=== PATIENT | male | born 1975 | race Two or more races ===

== ENCOUNTER 2017-01-01 13:10 | Inpatient (IN) | payer MEDICAID ==
[2017-01-01] VITALS (9 sets, daily range): BP systolic 108–129; BP diastolic 57–72
[~2017-01-01] VITALS: Ht 175.3 cm; Wt 104.4 kg
[2017-01-01 14:02] LABS: Basophils # (auto) 0.1 uL; Basophils % (auto) 0.4 % (0.0-2.0); DEFINITIVE VIEW TRANSMISSION; Eosinophils # (auto) 0.1 uL; Eosinophils % (auto) 0.8 % (0.0-7.0); Hematocrit 18.9 % (41.0-53.0); Lymphocytes # (auto) 1.4 uL; Lymphocytes % (auto) 10.1 % (10.0-50.0); Mean Corpuscular Hemoglobin 47.5 pg (28.0-32.0); Mean Corpuscular Hgb Conc. 36.2 g/dL (32.0-36.0); Mean Corpuscular Volume 131.4 fL (80.0-100.0); Mean Platelet Volume 7.1 fL (7.4-10.4); Monocytes # (auto) 0.6 uL; Monocytes % (auto) 4.1 % (0.0-12.0); Neutrophils # (auto) 11.9 uL; Neutrophils % (auto) 84.6 % (37.0-80.0); Platelet Count (auto) 180 10^3/uL (140-450)
[2017-01-01 14:11] LABS: Albumin 1.6 g/dL (3.4-5.0); BUN/Creatinine Ratio 11.1; Calcium 7.2 mg/dL (8.5-10.1)
[2017-01-01 14:14] LABS: Hemoglobin 6.8 g/dL (13.5-17.5)
[2017-01-01 14:15] LABS: Partial Thromboplastin Time 34.5 sec (22.64-33.71)
[2017-01-01 14:23] LABS: Bilirubin, Total 17.3 mg/dL (0.2-1.0); Total Protein 6.2 g/dL (6.4-8.2)
[2017-01-01 14:30] LABS: INR 1.86 (0.9-1.15); Prothrombin Time 20.4 sec (9.37-12.3)
[2017-01-01] MEDS ORDERED: POTASSIUM CHL 20MEQ/100ML 100 ML IV ONE (15:30)
[2017-01-01] MEDS ORDERED: PHYTONADIONE ORAL Susp 10 mg/10ml PO ONE (15:30)
[2017-01-01] MEDS ORDERED: MORPHINE SULF INJ 2 MG/ML SYRINGE 1ML IV PRN ×2 (15:45)
[2017-01-01] MEDS ORDERED: NITROGLYCERIN 0.4 MG SL TAB SL PRN (15:45)
[2017-01-01] MEDS ORDERED: LIDOCAINE 1% IV ONE ×2 (16:00)
[2017-01-01] MEDS ORDERED: POTASSIUM CHLORIDE 20 MEQ, LIDOCAINE 1% (LOCAL ANESTH.) 2 ML in SODIUM CHL 0.9% 100 ML IV ONE (16:00)
[2017-01-01] MEDS ORDERED: POTASSIUM CHL IV ONE ×2 (16:00)
[2017-01-01] MEDS ORDERED: OCTREOTIDE ACETATE 100 MCG in SODIUM CHL 0.9% 50 ML IV ONE (16:45)
[2017-01-01] MEDS: OCTREOTIDE ACETATE 500 MCG in SODIUM CHL 0.9% 99 ML IV SCH (20:59)
[2017-01-01] MEDS: PANTOPRAZOLE SODIUM 40 MG/10 ML VIAL IV SCH (21:30)
[2017-01-01] MEDS: PROPRANOLOL HCL 20 MG TAB PO SCH (22:00)
[2017-01-01] MEDS: FUROSEMIDE 40 MG/4 ML VIAL IV SCH (22:14)
[2017-01-02] VITALS (10 sets, daily range): BP systolic 91–111; BP diastolic 53–71
[2017-01-02 03:12] LABS: Urine Blood Negative /uL (Negative); Urine Color Brown (Yellow); Urine Glucose Normal (Normal); Urine Granular Cast MOD /lpf (0); Urine Hyaline Cast MOD /lpf (0 - 2); Urine Mucus FEW (None Seen); Urine Nitrite Negative (Negative); Urine RBC 2 /hpf (0 - 3); Urine Squamous Epithelial Cell MOD /hpf (<5); Urine WBC Clumps PRESENT /hpf (None Seen)
[2017-01-02 03:13] LABS: Urine Ketone 1+ (Negative)
[2017-01-02 03:18] LABS: Urine Bilirubin 4+ (Negative)
[2017-01-02] MEDS: OCTREOTIDE ACETATE 500 MCG in SODIUM CHL 0.9% 99 ML IV SCH ×2 (03:49→13:00)
[2017-01-02 05:42] LABS: Basophils # (auto) 0 uL; Basophils % (auto) 0.4 % (0.0-2.0); DEFINITIVE VIEW TRANSMISSION; Eosinophils # (auto) 0.1 uL; Eosinophils % (auto) 0.9 % (0.0-7.0); Hematocrit 23.1 % (41.0-53.0); Hemoglobin 7.9 g/dL (13.5-17.5); Lymphocytes # (auto) 0.8 uL; Lymphocytes % (auto) 7.2 % (10.0-50.0); Mean Corpuscular Hemoglobin 40.2 pg (28.0-32.0); Mean Corpuscular Hgb Conc. 34.1 g/dL (32.0-36.0); Mean Corpuscular Volume 117.8 fL (80.0-100.0); Mean Platelet Volume 6.9 fL (7.4-10.4); Monocytes # (auto) 0.5 uL; Neutrophils # (auto) 10.2 uL; Neutrophils % (auto) 87.5 % (37.0-80.0); Platelet Count (auto) 152 10^3/uL (140-450); SUSPECT VIEW TRANSMISSION; White Blood Cell 11.6 10^3/uL (4.4-10.8)
[2017-01-02 05:48] LABS: Red Cell Distribution Width 27.5 % (11.6-16.0)
[2017-01-02 05:55] LABS: Albumin 1.6 g/dL (3.4-5.0); BUN/Creatinine Ratio 11.7; Calcium 7.3 mg/dL (8.5-10.1); Potassium 3.5 mmol/L (3.5-5.1)
[2017-01-02 06:06] LABS: Bilirubin, Total 17.5 mg/dL (0.2-1.0); Total Protein 5.9 g/dL (6.4-8.2)
[2017-01-02 06:07] LABS: INR 1.67 (0.9-1.15); Prothrombin Time 18.3 sec (9.37-12.3)
[2017-01-02 08:31] LABS: Anisocytosis Slight; Macrocytosis Slight; Platelet Estimate Adequate
[2017-01-02] MEDS ORDERED: IOHEXOL 300 MG/ML 100ML BOTTLE IJ ONE (09:48)
[2017-01-02] MEDS: PANTOPRAZOLE SODIUM 40 MG/10 ML VIAL IV SCH ×2 (09:54→21:45)
[2017-01-02] MEDS: PROPRANOLOL HCL 20 MG TAB PO SCH ×2 (09:54→21:46)
[2017-01-02] MEDS: SPIRONOLACTONE 25 MG TAB PO SCH (09:55)
[2017-01-02] MEDS: FUROSEMIDE 40 MG/4 ML VIAL IV SCH ×2 (09:59→21:46)
[2017-01-02] MEDS: LACTULOSE 20Gm/30ML SOLN PO SCH ×2 (10:00→21:45)
[2017-01-02] MEDS: CEFTRIAXONE SODIUM 2 GM in D5W 5% 50 ML IV SCH (13:01)
[2017-01-02] MEDS: SODIUM CHLORIDE 1 GM TAB PO SCH ×2 (13:50→21:46)
[2017-01-03] MEDS: OCTREOTIDE ACETATE 500 MCG in SODIUM CHL 0.9% 99 ML IV SCH ×3 (02:21→18:55)
[2017-01-03 05:00] VITALS: BP 97/54
[2017-01-03 06:50] LABS: Basophils # (auto) 0 uL; Basophils % (auto) 0.1 % (0.0-2.0); DEFINITIVE VIEW TRANSMISSION; Eosinophils # (auto) 0.1 uL; Hematocrit 20.9 % (41.0-53.0); Hemoglobin 7.4 g/dL (13.5-17.5); Lymphocytes # (auto) 1.4 uL; Lymphocytes % (auto) 14.6 % (10.0-50.0); Mean Corpuscular Hemoglobin 41.9 pg (28.0-32.0); Mean Corpuscular Hgb Conc. 35.3 g/dL (32.0-36.0); Mean Corpuscular Volume 118.9 fL (80.0-100.0); Mean Platelet Volume 7.1 fL (7.4-10.4); Monocytes # (auto) 0.4 uL; Monocytes % (auto) 4.3 % (0.0-12.0); Neutrophils # (auto) 7.7 uL; Platelet Count (auto) 168 10^3/uL (140-450); SUSPECT VIEW TRANSMISSION; White Blood Cell 9.7 10^3/uL (4.4-10.8)
[2017-01-03 06:56] LABS: Red Cell Distribution Width 29.6 % (11.6-16.0)
[2017-01-03 07:10] LABS: Potassium 3.2 mmol/L (3.5-5.1)
[2017-01-03 07:16] LABS: Albumin 1.6 g/dL (3.4-5.0); BUN/Creatinine Ratio 13.4; Calcium 7.6 mg/dL (8.5-10.1)
[2017-01-03 07:27] LABS: Bilirubin, Total 18.8 mg/dL (0.2-1.0)
[2017-01-03 07:30] VITALS: BP 116/65
[2017-01-03 08:09] LABS: Anisocytosis Moderate; Macrocytosis Moderate; Platelet Estimate Adequate
[2017-01-03 09:00] VITALS: BP 116/65
[2017-01-03] MEDS: PANTOPRAZOLE SODIUM 40 MG/10 ML VIAL IV SCH ×2 (09:59→21:45)
[2017-01-03] MEDS: PROPRANOLOL HCL 20 MG TAB PO SCH ×2 (10:00→21:46)
[2017-01-03] MEDS: CEFTRIAXONE SODIUM 2 GM in D5W 5% 50 ML IV SCH (10:01)
[2017-01-03] MEDS: LACTULOSE 20Gm/30ML SOLN PO SCH ×2 (10:01→21:46)
[2017-01-03] MEDS: FUROSEMIDE 40 MG/4 ML VIAL IV SCH ×2 (10:01→21:46)
[2017-01-03] MEDS: SPIRONOLACTONE 25 MG TAB PO SCH (10:28)
[2017-01-03] MEDS: SODIUM CHLORIDE 1 GM TAB PO SCH ×2 (10:43→21:46)
[2017-01-03 13:00] VITALS: BP 100/56
[2017-01-03 22:01] VITALS: BP 95/62
[2017-01-04] MEDS: OCTREOTIDE ACETATE 500 MCG in SODIUM CHL 0.9% 99 ML IV SCH (04:58)
[2017-01-04 05:00] VITALS: BP 95/54
[2017-01-04 05:49] LABS: Basophils # (auto) 0 uL; DEFINITIVE VIEW TRANSMISSION; Eosinophils # (auto) 0.1 uL; Eosinophils % (auto) 0.6 % (0.0-7.0); Hematocrit 21.8 % (41.0-53.0); Hemoglobin 7.7 g/dL (13.5-17.5); Lymphocytes # (auto) 2.3 uL; Lymphocytes % (auto) 24.3 % (10.0-50.0); Mean Corpuscular Hemoglobin 41.9 pg (28.0-32.0); Mean Corpuscular Hgb Conc. 35.1 g/dL (32.0-36.0); Mean Corpuscular Volume 119.4 fL (80.0-100.0); Mean Platelet Volume 7.2 fL (7.4-10.4); Monocytes # (auto) 0.4 uL; Monocytes % (auto) 3.7 % (0.0-12.0); Neutrophils # (auto) 6.8 uL; Neutrophils % (auto) 71.4 % (37.0-80.0); Platelet Count (auto) 177 10^3/uL (140-450); SUSPECT VIEW TRANSMISSION; White Blood Cell 9.5 10^3/uL (4.4-10.8)
[2017-01-04 06:06] LABS: Red Cell Distribution Width 28.8 % (11.6-16.0)
[2017-01-04 06:08] LABS: Albumin 1.8 g/dL (3.4-5.0); BUN/Creatinine Ratio 14.5; Bilirubin, Total 19.2 mg/dL (0.2-1.0); Calcium 7.7 mg/dL (8.5-10.1); Total Protein 6.4 g/dL (6.4-8.2)
[2017-01-04 06:11] LABS: Potassium 2.9 mmol/L (3.5-5.1)
[2017-01-04] MEDS ORDERED: POTASSIUM CHL 20 Meq TABLET PO ONE (07:00)
[2017-01-04 07:36] LABS: Platelet Estimate Adequate
[2017-01-04 07:37] LABS: Anisocytosis Moderate; Macrocytosis Moderate
[2017-01-04 08:00] VITALS: BP 97/58
[2017-01-04] MEDS ORDERED: LIDOCAINE VISCOUS 2% 15ML UD ONE (08:25)
[2017-01-04] MEDS ORDERED: SODIUM CHLORIDE LOCK 10 ML ONE (08:25)
[2017-01-04] MEDS ORDERED: diphenhdrAMINE HCL 50 MG/1 ML VL ONE (08:26)
[2017-01-04] MEDS ORDERED: fentaNYL CITRATE 100 MCG/2 ML VL ONE (08:26)
[2017-01-04] MEDS ORDERED: MIDAZOLAM HCL 5 MG/ML-1ML VIAL ONE (08:26)
[2017-01-04 09:00] VITALS: BP 97/58
[2017-01-04] MEDS: FUROSEMIDE 40 MG/4 ML VIAL IV SCH ×2 (09:37→22:19)
[2017-01-04] MEDS: PANTOPRAZOLE SODIUM 40 MG/10 ML VIAL IV SCH (09:37)
[2017-01-04] MEDS: LACTULOSE 20Gm/30ML SOLN PO SCH ×2 (09:37→22:19)
[2017-01-04] MEDS: SODIUM CHLORIDE 1 GM TAB PO SCH ×2 (09:37→22:19)
[2017-01-04] MEDS: PROPRANOLOL HCL 20 MG TAB PO SCH ×2 (09:38→22:20)
[2017-01-04] MEDS: SPIRONOLACTONE 25 MG TAB PO SCH (09:38)
[2017-01-04] MEDS: POTASSIUM CHL 20MEQ/100ML 100 ML IV SCH ×2 (13:46→16:49)
[2017-01-04] MEDS: CEFTRIAXONE SODIUM 2 GM in D5W 5% 50 ML IV SCH (14:30)
[2017-01-04 14:38] LABS: Body Fluid Polymorphonuclear 20 %
[2017-01-04] MEDS ORDERED: POTASSIUM CHL 20MEQ/100ML 100 ML IV SCH (16:30)
[2017-01-04 17:00] VITALS: BP 91/40
[2017-01-04 22:00] VITALS: BP 93/54
[2017-01-04] MEDS: PANTOPRAZOLE 40 MG TAB PO SCH (22:20)
[2017-01-05 05:00] VITALS: BP 98/56
[2017-01-05 06:03] LABS: Basophils # (auto) 0 uL; Basophils % (auto) 0.2 % (0.0-2.0); DEFINITIVE VIEW TRANSMISSION; Eosinophils # (auto) 0.1 uL; Eosinophils % (auto) 1.1 % (0.0-7.0); Hemoglobin 7.4 g/dL (13.5-17.5); Lymphocytes # (auto) 2.2 uL; Lymphocytes % (auto) 23.7 % (10.0-50.0); Mean Corpuscular Hemoglobin 42.4 pg (28.0-32.0); Mean Corpuscular Hgb Conc. 35.3 g/dL (32.0-36.0); Mean Corpuscular Volume 120.2 fL (80.0-100.0); Monocytes # (auto) 0.5 uL; Monocytes % (auto) 4.9 % (0.0-12.0); Neutrophils # (auto) 6.5 uL; Neutrophils % (auto) 70.1 % (37.0-80.0); Platelet Count (auto) 166 10^3/uL (140-450); SUSPECT VIEW TRANSMISSION; White Blood Cell 9.3 10^3/uL (4.4-10.8)
[2017-01-05 06:05] LABS: Calcium 7.8 mg/dL (8.5-10.1); Potassium 3.2 mmol/L (3.5-5.1)
[2017-01-05 06:09] LABS: Albumin 1.6 g/dL (3.4-5.0)
[2017-01-05 06:19] LABS: Bilirubin, Total 18.4 mg/dL (0.2-1.0); Total Protein 6.1 g/dL (6.4-8.2)
[2017-01-05 06:42] LABS: Platelet Estimate Adequate
[2017-01-05 06:43] LABS: Anisocytosis Moderate
[2017-01-05 06:44] LABS: Basophilic Stippling FEW; Macrocytosis Marked; Polychromasia Slight
[2017-01-05 07:57] VITALS: BP 93/57
[2017-01-05 08:19] VITALS: BP 107/52
[2017-01-05] MEDS: FUROSEMIDE 40 MG/4 ML VIAL IV SCH ×2 (09:33→22:00)
[2017-01-05] MEDS: LACTULOSE 20Gm/30ML SOLN PO SCH ×2 (09:33→21:59)
[2017-01-05] MEDS: SPIRONOLACTONE 25 MG TAB PO SCH (09:34)
[2017-01-05] MEDS: PANTOPRAZOLE 40 MG TAB PO SCH ×2 (09:34→22:00)
[2017-01-05] MEDS: PROPRANOLOL HCL 20 MG TAB PO SCH ×2 (09:34→22:00)
[2017-01-05] MEDS: SODIUM CHLORIDE 1 GM TAB PO SCH ×2 (09:51→21:59)
[2017-01-05] MEDS: CEFTRIAXONE SODIUM 2 GM in D5W 5% 50 ML IV SCH (10:13)
[2017-01-05] MEDS ORDERED: POTASSIUM CHL 20 Meq TABLET PO ONE (10:30)
[2017-01-05] MEDS: PHYTONADIONE ORAL Susp 10 mg/10ml PO SCH (10:53)
[2017-01-05 12:09] VITALS: BP 104/58
[2017-01-05 16:53] VITALS: BP 88/57
[2017-01-05 17:09] LABS: Albumin, Body Fluid 0.5 g/dL (.)
[2017-01-05 22:00] VITALS: BP 80/41
[2017-01-06 05:00] VITALS: BP 102/56
[2017-01-06 06:54] LABS: DEFINITIVE VIEW TRANSMISSION; Hematocrit 20.8 % (41.0-53.0); Hemoglobin 7.3 g/dL (13.5-17.5); Mean Corpuscular Hgb Conc. 35.2 g/dL (32.0-36.0); Mean Corpuscular Volume 119.3 fL (80.0-100.0); Mean Platelet Volume 6.7 fL (7.4-10.4); Platelet Count (auto) 180 10^3/uL (140-450); SUSPECT VIEW TRANSMISSION; White Blood Cell 9.5 10^3/uL (4.4-10.8)
[2017-01-06 07:11] LABS: Metamyelocytes % 0; Myelocytes % 0; Promyelocytes % 0; Reactive Lymphocytes 0
[2017-01-06 07:24] LABS: Partial Thromboplastin Time 32.7 sec (22.64-33.71)
[2017-01-06 07:27] LABS: INR 1.56 (0.9-1.15); Prothrombin Time 17.1 sec (9.37-12.3)
[2017-01-06 07:48] LABS: Platelet Estimate Adequate
[2017-01-06 07:49] LABS: Anisocytosis Moderate; Macrocytosis Moderate
[2017-01-06 08:11] LABS: Albumin 1.8 g/dL (3.4-5.0); BUN/Creatinine Ratio 16.4; Bilirubin, Total 17.4 mg/dL (0.2-1.0); Calcium 7.8 mg/dL (8.5-10.1); Potassium 3.3 mmol/L (3.5-5.1); Total Protein 6.5 g/dL (6.4-8.2)
[2017-01-06 09:00] VITALS: BP 90/44
[2017-01-06] MEDS: PROPRANOLOL HCL 20 MG TAB PO SCH (10:00)
[2017-01-06] MEDS: FUROSEMIDE 40 MG/4 ML VIAL IV SCH (10:00)
[2017-01-06] MEDS: PHYTONADIONE ORAL Susp 10 mg/10ml PO SCH (10:00)
[2017-01-06] MEDS: SODIUM CHLORIDE 1 GM TAB PO SCH (10:00)
[2017-01-06] MEDS: SPIRONOLACTONE 25 MG TAB PO SCH (10:12)
[2017-01-06] MEDS: PANTOPRAZOLE 40 MG TAB PO SCH (10:13)
[2017-01-06] MEDS: LACTULOSE 20Gm/30ML SOLN PO SCH (10:13)
[2017-01-06] MEDS: CEFTRIAXONE SODIUM 2 GM in D5W 5% 50 ML IV SCH (10:14)
[2017-01-06 13:00] VITALS: BP 100/54
[2017-01-06 13:13] VITALS: BP 90/44
== END 2017-01-06 14:20 | disposition home or self-care (01) | DRG 280 ==
LOC: ER 13:10 → OVERFLOW 13:11 → EAST 17:41
PROVIDERS: ADMIT Internal Medicine; ATTEND Family Medicine
PROC: 30233N1 Transfusion of Nonautologous Red Blood Cells into Peripheral Vein, Percutaneous Approach (ICD-10-PCS; 2017-01-01)
PROC: 30233L1 Transfusion of Nonautologous Fresh Plasma into Peripheral Vein, Percutaneous Approach (ICD-10-PCS; 2017-01-02)
PROC: 30233K1 Transfusion of Nonautologous Frozen Plasma into Peripheral Vein, Percutaneous Approach (ICD-10-PCS; 2017-01-02)
PROC: 0W9G30Z Drainage of Peritoneal Cavity with Drainage Device, Percutaneous Approach (ICD-10-PCS; 2017-01-04)
PROC: 0DJ08ZZ Inspection of Upper Intestinal Tract, Via Natural or Artificial Opening Endoscopic (ICD-10-PCS; principal; 2017-01-04 12:26)
DX: K70.31 Alcoholic cirrhosis of liver with ascites (principal); E43 Unspecified severe protein-calorie malnutrition; D68.4 Acquired coagulation factor deficiency; K76.6 Portal hypertension; C22.0 Liver cell carcinoma; I85.10 Secondary esophageal varices without bleeding; E87.1 Hypo-osmolality and hyponatremia; K92.2 Gastrointestinal hemorrhage, unspecified; E87.70 Fluid overload, unspecified; D64.9 Anemia, unspecified; E87.6 Hypokalemia; F41.9 Anxiety disorder, unspecified; R16.0 Hepatomegaly, not elsewhere classified; F10.229 Alcohol dependence with intoxication, unspecified; F17.210 Nicotine dependence, cigarettes, uncomplicated; K31.89 Other diseases of stomach and duodenum; K44.9 Diaphragmatic hernia without obstruction or gangrene; Z68.34 Body mass index [BMI] 34.0-34.9, adult
CPT/HCPCS: 10022; 36415; 36430; 43235; 74176; 74178; 76700; 76942; 80053; 80074; 80320; 81001; 82105; 82140; 82150; 83690; 84132; 85007; 85025; 85027; 85610; 85730; 86850; 86900; 86901; 86920; 89051; 96365; 99291; C9113; J0696; J2001; J2250; J3480; J7060

== ENCOUNTER 2017-03-24 12:07 | Observation (INO) | payer MEDICAID ==
[~2017-03-24] VITALS: Ht 175.3 cm; Wt 83.9 kg
[2017-03-24] MEDS ORDERED: SODIUM CHLORIDE 0.9% 1,000 ML IVB ONE (13:07)
[2017-03-24] MEDS ORDERED: ONDANSETRON HCL 4 MG/2 ML VIAL IV ONE (13:15)
[2017-03-24 13:40] LABS: CONDITION Y; DEFINITIVE SEE PRINTOUT; Hematocrit 40.6 % (41.0-53.0); Hemoglobin 13.8 g/dL (13.5-17.5); Mean Corpuscular Hemoglobin 34.8 pg (28.0-32.0); Mean Corpuscular Volume 102.6 fL (80.0-100.0); Mean Platelet Volume 9.2 fL (7.4-10.4); Platelet Count (auto) 231 10^3/uL (140-450); Red Cell Distribution Width 15.4 % (11.6-16.0); SUSPECT SEE PRINTOUT
[2017-03-24 13:49] LABS: Metamyelocytes % 0; Myelocytes % 0; Promyelocytes % 0; Reactive Lymphocytes 0
[2017-03-24 13:52] LABS: INR 1.41 (0.9-1.15); Partial Thromboplastin Time 32.6 sec (22.64-33.71)
[2017-03-24 13:55] LABS: Albumin 3.5 g/dL (3.4-5.0); BUN/Creatinine Ratio 6.8; Calcium 10.1 mg/dL (8.5-10.1); Magnesium 2.3 mg/dL (1.6-2.6); Prothrombin Time 15.4 sec (9.37-12.3)
[2017-03-24 13:58] LABS: Bilirubin, Total 12.8 mg/dL (0.2-1.0); Total Protein 11.7 g/dL (6.4-8.2)
[2017-03-24] MEDS ORDERED: SODIUM CHLORIDE 0.9% 2,000 ML IV ONE ×2 (14:00→15:15)
[2017-03-24 14:04] LABS: Potassium 2.7 mmol/L (3.5-5.1)
[2017-03-24] MEDS: POTASSIUM CHL 20MEQ/100ML 100 ML IV SCH ×2 (14:15→16:15)
[2017-03-24] MEDS ORDERED: cefTRIAXone 1GM/50ML D5W 50 ML IV ONE (14:15)
[2017-03-24 15:05] LABS: Lactic Acid w/Reflex 8.8 mmol/L (0.4-2.0)
[2017-03-24 15:12] LABS: Macrocytosis Slight; Platelet Estimate Adequate
[2017-03-24 15:13] LABS: Giant Platelets Few
[2017-03-24] MEDS ORDERED: SODIUM CHLORIDE 0.9% 1,000 ML IV SCH (15:15)
[2017-03-24] MEDS ORDERED: LORazepam 2MG/ML-1ML VIAL IV PRN (15:15)
[2017-03-24] MEDS ORDERED: NOREPINEPHRINE BITARTRATE 250 ML IV SCH (15:15)
[2017-03-24] MEDS ORDERED: PANTOPRAZOLE 40 MG/10 ML VIAL IV ONE (15:15)
[2017-03-24] MEDS ORDERED: MORPHINE SULFATE 4 MG/ML SYRG IV PRN (15:15)
[2017-03-24] MEDS ORDERED: LINEZOLID 600MG/300ML 300 ML IV SCH ×2 (15:15→15:30)
[2017-03-24] MEDS ORDERED: NITROGLYCERIN 0.4 MG SL TAB SL PRN (15:15)
[2017-03-24] MEDS ORDERED: DEXTROSE (50%) 50ML SYRG IV PRN (15:15)
[2017-03-24] MEDS ORDERED: PROMETHAZINE HCL 25 MG/ML 1ML IV PRN (15:15)
[2017-03-24] MEDS ORDERED: MORPHINE SULF INJ 2 MG/ML SYRINGE 1ML IV PRN ×2 (15:15)
[2017-03-24] MEDS ORDERED: PIPERACILLIN-TAZOB 3.375GM 100 ML IV ONE (15:30)
[2017-03-24 15:37] LABS: REFLEX LACTIC ACID YES OR NO YES
[2017-03-24 17:06] VITALS: BP 90/50
[2017-03-24] MEDS ORDERED: InsuLIN REG 1unit/0.01ml Soln (100units/ml) SC SCH (18:00)
[2017-03-24] MEDS ORDERED: ACCU-CHEK COMFORT CURVE STRIP VI SCH (18:00)
[2017-03-24] MEDS ORDERED: PIPERACILLIN-TAZOB 3.375GM 100 ML IV SCH (21:00)
[2017-03-25] MEDS ORDERED: PANTOPRAZOLE 40 MG/10 ML VIAL IV SCH (10:00)
== END 2017-03-24 18:11 | disposition short-term general hospital (02) | DRG 254 ==
LOC: ER 12:07 → EDBD 12:07 → OVERFLOW 13:08 → ER 18:11
PROVIDERS: ADMIT Family Medicine; ATTEND Family Medicine
DX: K42.0 Umbilical hernia with obstruction, without gangrene (principal); I10 Essential (primary) hypertension; R11.2 Nausea with vomiting, unspecified; E11.9 Type 2 diabetes mellitus without complications; F41.9 Anxiety disorder, unspecified; F32.9 Major depressive disorder, single episode, unspecified; E86.0 Dehydration; E87.6 Hypokalemia
CPT/HCPCS: 36415; 71010; 74176; 80053; 82140; 82150; 83036; 83605; 83690; 83735; 85007; 85027; 85045; 85610; 85730; 87040; 87077; 87186; 93005; 96361; 96365; 96366; 96367; 96368; 96375; 99291; C9113; G0378; J0696; J2020; J2405; J2543; J3480; J7030

== ENCOUNTER 2018-05-02 04:34 | Inpatient (IN) | payer MEDICAID ==
[~2018-05-02] VITALS: Ht 177.8 cm; Wt 95.7 kg
[2018-05-02] MEDS ORDERED: SODIUM CHLORIDE 0.9% 500 ML IV ONE (05:15)
[2018-05-02] MEDS ORDERED: PANTOPRAZOLE 40 MG/10 ML VIAL IV ONE ×2 (05:15→11:15)
[2018-05-02] MEDS ORDERED: FAMO40TA49 PO (06:08)
[2018-05-02] MEDS ORDERED: FER325T PO (06:08)
[2018-05-02] MEDS ORDERED: FURO40TA4 PO (06:08)
[2018-05-02] MEDS ORDERED: PRO20T PO (06:08)
[2018-05-02] MEDS ORDERED: CHOLCAP4 PO (06:08)
[2018-05-02] MEDS ORDERED: SODI650T PO (06:08)
[2018-05-02] MEDS ORDERED: SPIR25TA8 PO (06:08)
[2018-05-02] MEDS ORDERED: MIRT30TA PO (06:10)
[2018-05-02] MEDS ORDERED: ALEN1TAB32 PO (06:10)
[2018-05-02] MEDS ORDERED: HYDRX10T PO (06:11)
[2018-05-02] MEDS ORDERED: CHL10C PO (06:11)
[2018-05-02] MEDS ORDERED: PROP60CA34 PO (06:13)
[2018-05-02 06:52] LABS: Basophils # (auto) 0 uL; Basophils % (auto) 0.4 % (0.0-2.0); Eosinophils # (auto) 0.3 uL; Eosinophils % (auto) 4.2 % (0.0-7.0); Hematocrit 28.9 % (41.0-53.0); Hemoglobin 9.4 g/dL (13.5-17.5); Lymphocytes # (auto) 1.2 uL; Lymphocytes % (auto) 14.8 % (10.0-50.0); Mean Corpuscular Hemoglobin 29.2 pg (28.0-32.0); Mean Corpuscular Hgb Conc. 32.7 g/dL (32.0-36.0); Mean Corpuscular Volume 89.4 fL (80.0-100.0); Monocytes % (auto) 12.6 % (0.0-12.0); Neutrophils # (auto) 5.5 uL; Nucleated Red Blood Cells % 0.1 %; Platelet Count (auto) 76 10^3/uL (140-450); Red Blood Cells 3.23 10^6/uL (4.5-5.90); White Blood Cell 8.1 10^3/uL (4.4-10.8)
[2018-05-02 07:06] LABS: INR 1.17 (0.9-1.15); Partial Thromboplastin Time 30.2 sec (23.78-33.04); Prothrombin Time 12.4 sec (9.27-12.13)
[2018-05-02 07:15] LABS: Alanine Aminotransferase 31 U/L (16-61); Albumin 3.1 g/dL (3.4-5.0); Anion Gap 13 (5-15); Calcium 7.9 mg/dL (8.5-10.1); Carbon Dioxide 24 mmol/L (21-32); Chloride 103 mmol/L (98-107); Glucose 101 mg/dL (74-106); Potassium 3.9 mmol/L (3.5-5.1); Sodium 140 mmol/L (136-145)
[2018-05-02 07:17] LABS: Aspartate Aminotransferase 57 U/L (15-37); BUN/Creatinine Ratio 19.4; Blood Urea Nitrogen 18 mg/dL (7-18); GFR African American 116 mL/min; GFR Non-African American 96 mL/min
[2018-05-02 07:23] LABS: Alkaline Phosphatase 104 U/L (45-117)
[2018-05-02 07:24] LABS: Red Cell Distribution Width 20.1 % (11.8-14.3)
[2018-05-02 08:39] LABS: Lactic Acid w/Reflex 2.1 mmol/L (0.4-2.0)
[2018-05-02] MEDS ORDERED: OCTREOTIDE ACETATE 100 MCG in SODIUM CHL 0.9% 50 ML IV ONE (10:45)
[2018-05-02] MEDS ORDERED: FAMOTIDINE (10MG/ML) 2ML VL IV ONE (10:45)
[2018-05-02] MEDS ORDERED: SPIRONOLACTONE 25 MG TAB PO ONE ×2 (11:00→11:15)
[2018-05-02] MEDS ORDERED: chlordiazePOXIDE HCL 25 MG CAP PO PRN (11:00)
[2018-05-02] MEDS ORDERED: hydrOXYzine HCL 10 MG TAB PO PRN (11:00)
[2018-05-02] MEDS ORDERED: HYDROcodone-ACET 5/325MG TAB PO PRN (11:00)
[2018-05-02] MEDS ORDERED: ALUM & MAG HYDROX-SIMETH LIQ(MAALOX) 30 ML PO PRN (11:00)
[2018-05-02] MEDS ORDERED: DOCUSATE SOD 100 MG CAP PO PRN (11:00)
[2018-05-02] MEDS ORDERED: NITROGLYCERIN 0.4 MG SL TAB SL PRN (11:00)
[2018-05-02] MEDS ORDERED: ONDANSETRON HCL 4 MG/2 ML VIAL IV PRN (11:00)
[2018-05-02] MEDS ORDERED: FUROSEMIDE 40 MG/4 ML VIAL IV ONE (11:00)
[2018-05-02] MEDS ORDERED: PROPRANOLOL HCL 20 MG TAB PO ONE ×2 (11:00→11:15)
[2018-05-02] MEDS ORDERED: ACETAMINOPHEN 325 MG TAB PO PRN (11:00)
[2018-05-02] MEDS ORDERED: TEMAZEPAM 15 MG CAP PO PRN (11:00)
[2018-05-02] MEDS ORDERED: MORPHINE SULF INJ 2 MG/ML SYRINGE 1ML IV PRN ×2 (11:00)
[2018-05-02] MEDS ORDERED: ALENDRONATE SODIUM 10 MG TAB PO SCH (11:00)
[2018-05-02] MEDS ORDERED: ERGOCALCIFEROL 50,000 UNIT(1.25MG) CAP PO SCH (11:00)
[2018-05-02] MEDS: SODIUM CHLORIDE 0.9% 1,000 ML IV SCH ×2 (11:27→18:14)
[2018-05-02 11:40] LABS: Amphetamine Screen, Urine NEGATIVE (NEGATIVE); Barbiturate Scree,Urine NEGATIVE (NEGATIVE); Benzodiazephine Screen, Urine POSITIVE (NEGATIVE); Cannabinoid Screen, Urine NEGATIVE (NEGATIVE); Cocaine Screen, Urine NEGATIVE (NEGATIVE); Opiate Scree,Urine NEGATIVE (NEGATIVE); Phencyclidine Screen, Urine NEGATIVE (NEGATIVE)
[2018-05-02] MEDS: OCTREOTIDE ACETATE 500 MCG in SODIUM CHL 0.9% 99 ML IV SCH ×2 (11:40→20:45)
[2018-05-02] MEDS: Ensure Enlive Strawberry 8oz Bottle PO SCH ×2 (12:00→14:38)
[2018-05-02] MEDS: GABAPENTIN 300 MG CAP PO SCH ×2 (14:00→22:00)
[2018-05-02 14:01] LABS: Hematocrit 25.9 % (41.0-53.0); Hemoglobin 8.7 g/dL (13.5-17.5)
[2018-05-02] MEDS: FERROUS SULFATE 325 MG TAB PO SCH (18:00)
[2018-05-02] MEDS: SPIRONOLACTONE 25 MG TAB PO SCH (18:00)
[2018-05-02] MEDS ORDERED: SODIUM CHLORIDE 0.9% 1,000 ML IV ONE (18:15)
[2018-05-02] MEDS ORDERED: LORazepam 2MG/ML-1ML VIAL IV PRN (18:30)
[2018-05-02] MEDS ORDERED: NOREPINEPHRINE 8 MG/250ML KIT 250 ML IV SCH (19:01)
[2018-05-02] MEDS: THIAMINE INJ 100 MG, MULTIPLE VITAMIN 10 ML, FOLIC ACID 1 MG, MAGNESIUM SULF SDV 50% 8 ... IV SCH ×5 (19:49)
[2018-05-02 20:51] LABS: Hematocrit 23.2 % (41.0-53.0); Hemoglobin 7.8 g/dL (13.5-17.5)
[2018-05-02] MEDS: SODIUM BICARBONATE 650 MG TAB PO SCH (22:00)
[2018-05-02] MEDS: MIRTAZAPINE 30 MG TAB PO SCH (22:00)
[2018-05-02] MEDS: PROPRANOLOL HCL 20 MG TAB PO SCH (22:00)
[2018-05-02 23:46] LABS: Hemoglobin 7.4 g/dL (13.5-17.5)
[2018-05-02 23:49] LABS: Hematocrit 22.6 % (41.0-53.0)
[2018-05-03] VITALS (18 sets, daily range): BP systolic 88–104; BP diastolic 54–70
[2018-05-03 05:04] LABS: Basophils # (auto) 0 uL; Eosinophils # (auto) 0.2 uL; Hemoglobin 7.2 g/dL (13.5-17.5); Lymphocytes # (auto) 1.1 uL; Neutrophils # (auto) 2.5 uL
[2018-05-03 05:06] LABS: Basophils % (auto) 0.8 % (0.0-2.0); Hematocrit 21.6 % (41.0-53.0); Lymphocytes % (auto) 24.8 % (10.0-50.0); Mean Corpuscular Hgb Conc. 33.2 g/dL (32.0-36.0); Mean Corpuscular Volume 90.2 fL (80.0-100.0); Monocytes # (auto) 0.6 uL; Monocytes % (auto) 13.1 % (0.0-12.0); Neutrophils % (auto) 57.3 % (37.0-80.0); Nucleated Red Blood Cells % 0.1 %; Platelet Count (auto) 50 10^3/uL (140-450); White Blood Cell 4.4 10^3/uL (4.4-10.8)
[2018-05-03 05:22] LABS: Albumin 2.8 g/dL (3.4-5.0); Calcium 7.4 mg/dL (8.5-10.1); Potassium 3.8 mmol/L (3.5-5.1)
[2018-05-03 05:29] LABS: BUN/Creatinine Ratio 28.7; Bilirubin, Total 1.3 mg/dL (0.2-1.0); Total Protein 5.8 g/dL (6.4-8.2)
[2018-05-03] MEDS: SPIRONOLACTONE 25 MG TAB PO SCH ×3 (05:59→20:58)
[2018-05-03] MEDS: GABAPENTIN 300 MG CAP PO SCH ×4 (05:59→20:58)
[2018-05-03] MEDS: SODIUM CHLORIDE 0.9% 1,000 ML IV SCH ×3 (06:00→20:18)
[2018-05-03 06:43] LABS: Urine Bacteria NONE SEEN /hpf (None Seen); Urine Blood Negative /uL (Negative); Urine Specific Gravity 1.015 (1.001-1.035); Urine WBC <1 /hpf (0 - 3)
[2018-05-03] MEDS: Ensure Enlive Strawberry 8oz Bottle PO SCH ×3 (08:00→17:45)
[2018-05-03] MEDS: FERROUS SULFATE 325 MG TAB PO SCH ×2 (08:00→17:45)
[2018-05-03] MEDS ORDERED: FLUMAZENIL 0.1 MG/ML INJ 10ML MDV IV ONE (08:30)
[2018-05-03] MEDS ORDERED: SODIUM CHLORIDE LOCK 10 ML ONE (08:30)
[2018-05-03] MEDS ORDERED: NALOXONE HCL 0.4 MG/ML VIAL ONE (08:30)
[2018-05-03] MEDS ORDERED: LIDOCAINE VISCOUS 2% 15ML UD ONE (08:30)
[2018-05-03] MEDS ORDERED: diphenhdrAMINE HCL 50 MG/1 ML VL ONE (08:31)
[2018-05-03] MEDS: OCTREOTIDE ACETATE 500 MCG in SODIUM CHL 0.9% 99 ML IV SCH ×2 (09:05→20:25)
[2018-05-03] MEDS ORDERED: MULTIPLE VITAMIN TAB PO SCH (10:00)
[2018-05-03] MEDS: PROPRANOLOL HCL 20 MG TAB PO SCH ×2 (10:00→19:53)
[2018-05-03] MEDS ORDERED: FAMOTIDINE (10MG/ML) 2ML VL IV SCH (10:00)
[2018-05-03] MEDS: SODIUM BICARBONATE 650 MG TAB PO SCH ×2 (10:00→19:52)
[2018-05-03] MEDS: PANTOPRAZOLE 40 MG/10 ML VIAL IV SCH (11:27)
[2018-05-03 12:13] LABS: Basophils # (auto) 0 uL; Eosinophils # (auto) 0.2 uL; Hemoglobin 7.1 g/dL (13.5-17.5); Lymphocytes # (auto) 1.2 uL; Lymphocytes % (auto) 25.8 % (10.0-50.0); Monocytes # (auto) 0.5 uL; Neutrophils # (auto) 2.6 uL; Nucleated Red Blood Cells % 0.1 %; White Blood Cell 4.5 10^3/uL (4.4-10.8)
[2018-05-03 12:15] LABS: Basophils % (auto) 0.7 % (0.0-2.0); Eosinophils % (auto) 4.4 % (0.0-7.0); Hematocrit 21.4 % (41.0-53.0); Mean Corpuscular Hemoglobin 29.9 pg (28.0-32.0); Mean Corpuscular Volume 90.6 fL (80.0-100.0); Monocytes % (auto) 11.2 % (0.0-12.0); Neutrophils % (auto) 57.9 % (37.0-80.0); Platelet Count (auto) 46 10^3/uL (140-450); Red Blood Cells 2.36 10^6/uL (4.5-5.90)
[2018-05-03 12:16] LABS: Red Cell Distribution Width 20.2 % (11.8-14.3)
[2018-05-03] MEDS ORDERED: LIDOCAINE VISCOUS 2% 15ML UD MT ONE (12:25)
[2018-05-03] MEDS ORDERED: fentaNYL CITRATE 100 MCG/2 ML VL IV ONE ×2 (12:25→12:28)
[2018-05-03] MEDS: MIDAZOLAM HCL 5 MG/ML-1ML VIAL ONE ×2 (12:25→12:28)
[2018-05-03] MEDS: fentaNYL CITRATE 100 MCG/2 ML VL ONE ×2 (12:25→12:28)
[2018-05-03] MEDS ORDERED: MIDAZOLAM HCL 1MG/1ML-2 ML VIAL IV ONE ×2 (12:25→12:28)
[2018-05-03] MEDS ORDERED: diphenhdrAMINE HCL 50 MG/1 ML VL IV ONE (12:26)
[2018-05-03] MEDS: THIAMINE INJ 100 MG, MULTIPLE VITAMIN 10 ML, FOLIC ACID 1 MG, MAGNESIUM SULF SDV 50% 8 ... IV SCH ×5 (13:32)
[2018-05-03 14:06] LABS: Basophils # (auto) 0 uL; Eosinophils # (auto) 0.2 uL; Hemoglobin 7.2 g/dL (13.5-17.5); Monocytes # (auto) 0.4 uL; Neutrophils # (auto) 2.3 uL
[2018-05-03 14:08] LABS: Basophils % (auto) 0.4 % (0.0-2.0); Eosinophils % (auto) 4.7 % (0.0-7.0); Hematocrit 21.5 % (41.0-53.0); Mean Corpuscular Hemoglobin 30.4 pg (28.0-32.0); Mean Corpuscular Hgb Conc. 33.6 g/dL (32.0-36.0); Mean Corpuscular Volume 90.4 fL (80.0-100.0); Monocytes % (auto) 10.4 % (0.0-12.0); Neutrophils % (auto) 58.5 % (37.0-80.0); Nucleated Red Blood Cells % 0.1 %; Platelet Count (auto) 45 10^3/uL (140-450); Red Blood Cells 2.38 10^6/uL (4.5-5.90)
[2018-05-03 14:17] LABS: Red Cell Distribution Width 20.7 % (11.8-14.3)
[2018-05-03] MEDS: FUROSEMIDE 40 MG/4 ML VIAL IV SCH (15:25)
[2018-05-03] MEDS: MIRTAZAPINE 30 MG TAB PO SCH (19:53)
[2018-05-04] VITALS (7 sets, daily range): BP systolic 99–124; BP diastolic 47–77
[2018-05-04 02:25] LABS: Basophils # (auto) 0 uL; Eosinophils # (auto) 0.2 uL; Lymphocytes # (auto) 0.8 uL; Mean Corpuscular Hgb Conc. 32.1 g/dL (32.0-36.0); Monocytes # (auto) 0.5 uL; Monocytes % (auto) 9.3 % (0.0-12.0); Neutrophils # (auto) 3.4 uL; White Blood Cell 4.9 10^3/uL (4.4-10.8)
[2018-05-04 02:27] LABS: Basophils % (auto) 0.2 % (0.0-2.0); Eosinophils % (auto) 4.1 % (0.0-7.0); Hematocrit 26.9 % (41.0-53.0); Hemoglobin 8.6 g/dL (13.5-17.5); Lymphocytes % (auto) 15.9 % (10.0-50.0); Mean Corpuscular Hemoglobin 29.2 pg (28.0-32.0); Mean Corpuscular Volume 91.2 fL (80.0-100.0); Neutrophils % (auto) 70.5 % (37.0-80.0); Platelet Count (auto) 58 10^3/uL (140-450); Red Blood Cells 2.96 10^6/uL (4.5-5.90); Red Cell Distribution Width 19.8 % (11.8-14.3)
[2018-05-04 02:44] LABS: Calcium 7.5 mg/dL (8.5-10.1); Potassium 4.3 mmol/L (3.5-5.1)
[2018-05-04] MEDS: OCTREOTIDE ACETATE 500 MCG in SODIUM CHL 0.9% 99 ML IV SCH ×3 (06:00→22:45)
[2018-05-04] MEDS: Ensure Enlive Strawberry 8oz Bottle PO SCH (08:00)
[2018-05-04] MEDS ORDERED: DEXTROSE (50%) 50ML SYRG IV PRN (09:45)
[2018-05-04] MEDS: FERROUS SULFATE 325 MG TAB PO SCH ×2 (09:59→17:41)
[2018-05-04] MEDS: PANTOPRAZOLE 40 MG/10 ML VIAL IV SCH ×2 (10:00→10:09)
[2018-05-04] MEDS: SODIUM CHLORIDE 0.9% 1,000 ML IV SCH ×2 (10:00→13:01)
[2018-05-04] MEDS: FUROSEMIDE 40 MG/4 ML VIAL IV SCH (10:15)
[2018-05-04] MEDS ORDERED: MIDAZOLAM HCL 1MG/1ML-2 ML VIAL ONE ×3 (11:25→11:33)
[2018-05-04] MEDS ORDERED: PROPOFOL 10 MG/ML 20 ML IV ONE (11:26)
[2018-05-04] MEDS ORDERED: fentaNYL CITRATE 100 MCG/2 ML VL ONE ×2 (11:26→11:35)
[2018-05-04] MEDS ORDERED: LIDOCAINE 2% (LOCAL ANESTH.) PF 5ml SDV ONE (11:27)
[2018-05-04] MEDS: InsuLIN REG 1unit/0.01ml Soln (100units/ml) SC SCH ×3 (11:30→21:37)
[2018-05-04] MEDS ORDERED: diphenhdrAMINE HCL 50 MG/1 ML VL ONE (11:31)
[2018-05-04] MEDS ORDERED: METOCLOPRAMIDE HCL 5MG/ml INJ 2ml VIAL ONE (11:31)
[2018-05-04] MEDS: SODIUM BICARBONATE 650 MG TAB PO SCH ×2 (12:59→21:37)
[2018-05-04] MEDS: ACCU-CHEK COMFORT CURVE STRIP VI SCH ×3 (13:00→21:38)
[2018-05-04] MEDS: THIAMINE INJ 100 MG, MULTIPLE VITAMIN 10 ML, FOLIC ACID 1 MG, MAGNESIUM SULF SDV 50% 8 ... IV SCH ×5 (13:00)
[2018-05-04] MEDS: PROPRANOLOL HCL 20 MG TAB PO SCH ×2 (13:00→21:37)
[2018-05-04] MEDS: GABAPENTIN 300 MG CAP PO SCH ×2 (13:01→21:35)
[2018-05-04] MEDS: ENSURE CLEAR Apple 8oz Carton PO SCH ×2 (13:01→21:41)
[2018-05-04] MEDS ORDERED: NALOXONE HCL 0.4 MG/ML VIAL ONE (13:23)
[2018-05-04 14:43] LABS: Hematocrit 27.6 % (41.0-53.0)
[2018-05-04] MEDS: SPIRONOLACTONE 25 MG TAB PO SCH (17:41)
[2018-05-04 18:35] LABS: Hemoglobin 8.9 g/dL (13.5-17.5)
[2018-05-04 18:46] LABS: Hematocrit 27.2 % (41.0-53.0)
[2018-05-04] MEDS: MIRTAZAPINE 30 MG TAB PO SCH (21:35)
[2018-05-05] VITALS (7 sets, daily range): BP systolic 105–114; BP diastolic 57–77
[2018-05-05] MEDS: SODIUM CHLORIDE 0.9% 1,000 ML IV SCH ×4 (02:13→22:01)
[2018-05-05] MEDS: SPIRONOLACTONE 25 MG TAB PO SCH ×2 (05:31→18:00)
[2018-05-05] MEDS: GABAPENTIN 300 MG CAP PO SCH ×3 (05:32→21:59)
[2018-05-05 06:00] LABS: Basophils # (auto) 0 uL; Basophils % (auto) 0.7 % (0.0-2.0); Eosinophils # (auto) 0.2 uL; Eosinophils % (auto) 3.5 % (0.0-7.0); Hemoglobin 8.3 g/dL (13.5-17.5); Lymphocytes # (auto) 0.8 uL; Lymphocytes % (auto) 18.9 % (10.0-50.0); Mean Corpuscular Hemoglobin 30.2 pg (28.0-32.0); Mean Corpuscular Hgb Conc. 33.2 g/dL (32.0-36.0); Mean Corpuscular Volume 90.9 fL (80.0-100.0); Monocytes # (auto) 0.4 uL; Monocytes % (auto) 9.4 % (0.0-12.0); Neutrophils % (auto) 67.5 % (37.0-80.0); Nucleated Red Blood Cells % 0.1 %; Platelet Count (auto) 59 10^3/uL (140-450); Red Blood Cells 2.74 10^6/uL (4.5-5.90); Red Cell Distribution Width 19.7 % (11.8-14.3); White Blood Cell 4.5 10^3/uL (4.4-10.8)
[2018-05-05] MEDS: ACCU-CHEK COMFORT CURVE STRIP VI SCH ×4 (06:11→22:00)
[2018-05-05] MEDS: InsuLIN REG 1unit/0.01ml Soln (100units/ml) SC SCH ×4 (06:11→22:00)
[2018-05-05] MEDS: OCTREOTIDE ACETATE 500 MCG in SODIUM CHL 0.9% 99 ML IV SCH ×2 (06:13→20:52)
[2018-05-05 06:28] LABS: Calcium 7.5 mg/dL (8.5-10.1); Potassium 3.8 mmol/L (3.5-5.1)
[2018-05-05 06:30] LABS: BUN/Creatinine Ratio 11.6
[2018-05-05] MEDS: ENSURE CLEAR Apple 8oz Carton PO SCH ×3 (08:51→21:57)
[2018-05-05] MEDS: FERROUS SULFATE 325 MG TAB PO SCH ×2 (10:06→19:27)
[2018-05-05] MEDS: SODIUM BICARBONATE 650 MG TAB PO SCH ×2 (10:06→21:57)
[2018-05-05] MEDS: PANTOPRAZOLE 40 MG/10 ML VIAL IV SCH (10:08)
[2018-05-05] MEDS: FUROSEMIDE 40 MG/4 ML VIAL IV SCH (10:09)
[2018-05-05] MEDS: PROPRANOLOL HCL 20 MG TAB PO SCH ×2 (10:09→21:58)
[2018-05-05] MEDS: THIAMINE INJ 100 MG, MULTIPLE VITAMIN 10 ML, FOLIC ACID 1 MG, MAGNESIUM SULF SDV 50% 8 ... IV SCH ×5 (13:11)
[2018-05-05] MEDS: MIRTAZAPINE 30 MG TAB PO SCH (21:59)
[2018-05-06] MEDS: OCTREOTIDE ACETATE 500 MCG in SODIUM CHL 0.9% 99 ML IV SCH (04:45)
[2018-05-06 04:49] VITALS: BP 103/57
[2018-05-06 05:13] LABS: Basophils # (auto) 0 uL; Basophils % (auto) 0.3 % (0.0-2.0); Eosinophils # (auto) 0.2 uL; Eosinophils % (auto) 2.9 % (0.0-7.0); Hematocrit 26.7 % (41.0-53.0); Hemoglobin 8.9 g/dL (13.5-17.5); Lymphocytes # (auto) 0.8 uL; Lymphocytes % (auto) 13.9 % (10.0-50.0); Mean Corpuscular Hemoglobin 30.4 pg (28.0-32.0); Mean Corpuscular Hgb Conc. 33.4 g/dL (32.0-36.0); Mean Corpuscular Volume 91.1 fL (80.0-100.0); Monocytes # (auto) 0.7 uL; Neutrophils # (auto) 3.9 uL; Neutrophils % (auto) 70.9 % (37.0-80.0); Nucleated Red Blood Cells % 0.2 %; Platelet Count (auto) 65 10^3/uL (140-450); Red Blood Cells 2.93 10^6/uL (4.5-5.90); White Blood Cell 5.5 10^3/uL (4.4-10.8)
[2018-05-06 05:34] LABS: BUN/Creatinine Ratio 6.6; Calcium 7.6 mg/dL (8.5-10.1); Potassium 3.6 mmol/L (3.5-5.1)
[2018-05-06 05:39] LABS: Red Cell Distribution Width 20.8 % (11.8-14.3)
[2018-05-06] MEDS: ENSURE CLEAR Apple 8oz Carton PO SCH ×3 (06:00→22:00)
[2018-05-06] MEDS: SPIRONOLACTONE 25 MG TAB PO SCH ×2 (06:05→17:28)
[2018-05-06] MEDS: GABAPENTIN 300 MG CAP PO SCH ×3 (06:05→23:15)
[2018-05-06] MEDS: InsuLIN REG 1unit/0.01ml Soln (100units/ml) SC SCH ×4 (06:06→22:00)
[2018-05-06] MEDS: ACCU-CHEK COMFORT CURVE STRIP VI SCH ×4 (06:06→22:00)
[2018-05-06] MEDS: SODIUM CHLORIDE 0.9% 1,000 ML IV SCH (06:35)
[2018-05-06] MEDS: FERROUS SULFATE 325 MG TAB PO SCH ×2 (07:51→17:28)
[2018-05-06 09:00] VITALS: BP 116/70
[2018-05-06] MEDS: SODIUM BICARBONATE 650 MG TAB PO SCH ×2 (09:44→23:15)
[2018-05-06] MEDS: PANTOPRAZOLE 40 MG TAB PO SCH (09:44)
[2018-05-06] MEDS: PROPRANOLOL HCL 20 MG TAB PO SCH ×2 (09:44→22:00)
[2018-05-06] MEDS: FUROSEMIDE 40 MG/4 ML VIAL IV SCH (09:45)
[2018-05-06 13:00] VITALS: BP 111/65
[2018-05-06] MEDS: THIAMINE INJ 100 MG, MULTIPLE VITAMIN 10 ML, FOLIC ACID 1 MG, MAGNESIUM SULF SDV 50% 8 ... IV SCH ×5 (15:39)
[2018-05-06] MEDS ORDERED: MORPHINE SULFATE 4 MG/ML SYR/VIAL IV PRN ×2 (16:30)
[2018-05-06 17:00] VITALS: BP 113/67
[2018-05-06 21:51] VITALS: BP 91/57
[2018-05-06] MEDS: MIRTAZAPINE 30 MG TAB PO SCH (23:15)
[2018-05-07 04:58] VITALS: BP 105/63
[2018-05-07] MEDS: SPIRONOLACTONE 25 MG TAB PO SCH (06:00)
[2018-05-07 06:23] LABS: Basophils # (auto) 0 uL; Basophils % (auto) 0.4 % (0.0-2.0); Eosinophils # (auto) 0.2 uL; Eosinophils % (auto) 4.5 % (0.0-7.0); Hematocrit 27.9 % (41.0-53.0); Hemoglobin 9.4 g/dL (13.5-17.5); Lymphocytes # (auto) 0.7 uL; Lymphocytes % (auto) 14.8 % (10.0-50.0); Mean Corpuscular Hemoglobin 30.6 pg (28.0-32.0); Mean Corpuscular Hgb Conc. 33.6 g/dL (32.0-36.0); Mean Corpuscular Volume 90.9 fL (80.0-100.0); Monocytes # (auto) 0.7 uL; Monocytes % (auto) 13.7 % (0.0-12.0); Neutrophils # (auto) 3.4 uL; Neutrophils % (auto) 66.6 % (37.0-80.0); Nucleated Red Blood Cells % 0.1 %; Platelet Count (auto) 73 10^3/uL (140-450); Red Blood Cells 3.07 10^6/uL (4.5-5.90); White Blood Cell 5.1 10^3/uL (4.4-10.8)
[2018-05-07] MEDS: GABAPENTIN 300 MG CAP PO SCH (06:30)
[2018-05-07] MEDS: ENSURE CLEAR Apple 8oz Carton PO SCH (06:30)
[2018-05-07] MEDS: ACCU-CHEK COMFORT CURVE STRIP VI SCH (06:31)
[2018-05-07 06:35] LABS: Red Cell Distribution Width 22.3 % (11.8-14.3)
[2018-05-07 06:38] LABS: BUN/Creatinine Ratio 6.4; Calcium 8.1 mg/dL (8.5-10.1); Potassium 3.4 mmol/L (3.5-5.1)
[2018-05-07] MEDS: InsuLIN REG 1unit/0.01ml Soln (100units/ml) SC SCH (07:00)
[2018-05-07] MEDS ORDERED: POTASSIUM EFFERVESENT TAB 25 MEQ PO ONE (07:45)
[2018-05-07 08:54] VITALS: BP 91/57
[2018-05-07 09:00] VITALS: BP 99/62
[2018-05-07] MEDS: FERROUS SULFATE 325 MG TAB PO SCH (11:41)
[2018-05-07] MEDS: SODIUM BICARBONATE 650 MG TAB PO SCH (11:41)
[2018-05-07] MEDS: PANTOPRAZOLE 40 MG TAB PO SCH (11:42)
[2018-05-07] MEDS: FUROSEMIDE 40 MG/4 ML VIAL IV SCH (11:42)
[2018-05-07] MEDS: PROPRANOLOL HCL 20 MG TAB PO SCH (11:42)
[2018-05-07 13:00] VITALS: BP 106/72
== END 2018-05-07 13:40 | disposition home or self-care (01) | DRG 720 ==
LOC: EDBD 04:34 → ER 04:41 → TELE 04:42 → DOU IN ICU 23:28 → TELE-WESTW 05-05 12:55
PROVIDERS: ADMIT Internal Medicine; ATTEND Internal Medicine
PROC: 30233R1 Transfusion of Nonautologous Platelets into Peripheral Vein, Percutaneous Approach (ICD-10-PCS; 2018-05-03)
PROC: 30233N1 Transfusion of Nonautologous Red Blood Cells into Peripheral Vein, Percutaneous Approach (ICD-10-PCS; 2018-05-03)
PROC: 0DJ08ZZ Inspection of Upper Intestinal Tract, Via Natural or Artificial Opening Endoscopic (ICD-10-PCS; principal; 2018-05-03 12:21)
PROC: 06L38CZ Occlusion of Esophageal Vein with Extraluminal Device, Via Natural or Artificial Opening Endoscopic (ICD-10-PCS; 2018-05-04)
DX: A41.9 Sepsis, unspecified organism (principal); I85.11 Secondary esophageal varices with bleeding; D68.9 Coagulation defect, unspecified; D69.6 Thrombocytopenia, unspecified; E44.0 Moderate protein-calorie malnutrition; E83.51 Hypocalcemia; D62 Acute posthemorrhagic anemia; K80.20 Calculus of gallbladder without cholecystitis without obstruction; K70.30 Alcoholic cirrhosis of liver without ascites; K76.6 Portal hypertension; D64.9 Anemia, unspecified; F10.10 Alcohol abuse, uncomplicated; F17.210 Nicotine dependence, cigarettes, uncomplicated; K31.89 Other diseases of stomach and duodenum; Z82.49 Family history of ischemic heart disease and other diseases of the circulatory system; Z83.3 Family history of diabetes mellitus; Z87.11 Personal history of peptic ulcer disease; Z90.49 Acquired absence of other specified parts of digestive tract; Z68.30 Body mass index [BMI] 30.0-30.9, adult; E88.09 Other disorders of plasma-protein metabolism, not elsewhere classified
CPT/HCPCS: 36415; 71045; 80048; 80053; 80307; 80320; 81001; 82962; 83036; 83605; 84484; 85014; 85018; 85025; 85610; 85730; 86850; 86900; 86901; 86920; 87081; 93005; 94761; 96361; 96374; 96375; 96376; A6257; C9113; J1815; J2001; J2250; J2405; J2704; J3490

== ENCOUNTER 2020-02-22 05:53 | Inpatient (IN) | payer MEDICAID ==
[~2020-02-22] VITALS: Ht 188 cm; Wt 152.0 kg
[2020-02-22] VITALS (24 sets, daily range): BP systolic 79–144; BP diastolic 35–78
[~2020-02-22 05:53] MED LIST: CHL10C PO; CHOLCAP4 PO; FAMO40TA7 PO; FER325T PO; FURO40TA4 PO; HYDRX10T PO; MIRT30TA PO; PRO20T PO; PROP60CA34 PO; SODI650T PO; SPIR25TA8 PO
[2020-02-22] MEDS ORDERED: SODIUM CHLORIDE 0.9% 1,000 ML IV ONE ×2 (06:27)
[2020-02-22] MEDS ORDERED: THIAMINE 100mg/ml INJ (200mg/2ml VIAL) IV ONE (06:30)
[2020-02-22] MEDS ORDERED: OCTREOTIDE ACETATE 100 MCG in SODIUM CHL 0.9% 50 ML IV ONE (06:30)
[2020-02-22] MEDS ORDERED: PANTOPRAZOLE 40mg/50ML NS AE 50 ML IV ONE (06:30)
[2020-02-22] MEDS ORDERED: PIPERACILLIN-TAZOB 3.375GM 100 ML IV ONE (06:30)
[2020-02-22 07:25] LABS: Eosinophils # (auto) 0 10 ^3/uL (0-0.8); INR 1.75 (0.9-1.15); Lymphocytes # (auto) 0.2 10 ^3/uL (0.4-5.4); Monocytes # (auto) 0.7 10 ^3/uL (0-1.3); Partial Thromboplastin Time 46.1 sec (23.64-32.05)
[2020-02-22 07:29] LABS: Basophils # (auto) 0 10 ^3/uL (0-0.2); Basophils % (auto) 0.1 % (0.0-2.0); Eosinophils % (auto) 0.1 % (0.0-7.0); Hematocrit 23.4 % (41.0-53.0); Hemoglobin 8.3 g/dL (13.5-17.5); Lymphocytes % (auto) 1.5 % (10.0-50.0); Mean Corpuscular Hemoglobin 38.9 pg (28.0-32.0); Mean Corpuscular Hgb Conc. 35.3 g/dL (32.0-36.0); Mean Corpuscular Volume 110.2 fL (80.0-100.0); Neutrophils # (auto) 10.5 10 ^3/uL (1.6-8.6); Neutrophils % (auto) 92.3 % (37.0-80.0); Nucleated Red Blood Cells % 0.1 %; Red Blood Cells 2.12 10^6/uL (4.5-5.90); White Blood Cell 11.4 10^3/uL (4.4-10.8)
[2020-02-22 07:32] LABS: Albumin 1.8 g/dL (3.4-5.0); Anion Gap 20 (5-15); Blood Urea Nitrogen 26 mg/dL (7-18); Calcium 6.4 mg/dL (8.5-10.1); Carbon Dioxide 16 mmol/L (21-32); Chloride 100 mmol/L (98-107); Glucose 123 mg/dL (74-106); Sodium 136 mmol/L (136-145)
[2020-02-22 07:33] LABS: Red Cell Distribution Width 23.3 % (11.8-14.3)
[2020-02-22 07:34] LABS: Platelet Count (auto) 98 10^3/uL (140-450)
[2020-02-22 07:52] LABS: Alanine Aminotransferase 71 U/L (16-61); Alkaline Phosphatase 252 U/L (45-117); Aspartate Aminotransferase 286 U/L (15-37); BUN/Creatinine Ratio 15.7; Bilirubin, Total 26.5 mg/dL (0.2-1.0); GFR African American 59 mL/min; GFR Non-African American 49 mL/min; Total Protein 6.3 g/dL (6.4-8.2)
[2020-02-22 08:00] LABS: Potassium 2.8 mmol/L (3.5-5.1)
[2020-02-22 08:07] LABS: Lactic Acid w/Reflex 6.7 mmol/L (0.4-2.0)
[2020-02-22] MEDS: POTASSIUM CHL 20MEQ/100ML 100 ML IV SCH ×2 (09:04→10:15)
[2020-02-22] MEDS ORDERED: PHYTONADIONE (VIT K)10 MG/ML 1ML VIAL SUBCUT ONE (09:45)
[2020-02-22] MEDS ORDERED: NOREPINEPHRINE 8 MG/250ML KIT 250 ML IV ONE (09:54)
[2020-02-22] MEDS ORDERED: SUCCINYLCHOLINE CHLORIDE 20 MG/ML 10ML VIAL IV ONE ×2 (09:55→10:15)
[2020-02-22] MEDS ORDERED: ETOMIDATE (2MG/ML) 20ML VIAL IV ONE ×2 (09:55→10:15)
[2020-02-22] MEDS ORDERED: METOCLOPRAMIDE HCL 5MG/ml INJ 2ml VIAL ONE (09:56)
[2020-02-22] MEDS ORDERED: MORPHINE SULF INJ 2 MG/ML SYRINGE 1ML IV PRN (10:00)
[2020-02-22] MEDS ORDERED: NITROGLYCERIN 0.4 MG SL TAB SL PRN (10:00)
[2020-02-22] MEDS ORDERED: METOCLOPRAMIDE HCL 5MG/ml INJ 2ml VIAL IV ONE (10:00)
[2020-02-22] MEDS ORDERED: SODIUM CHLORIDE 0.9% 1,000 ML IV SCH (10:11)
[2020-02-22] MEDS ORDERED: PROMETHAZINE HCL 25 MG/ML 1ML IV PRN (10:15)
[2020-02-22] MEDS ORDERED: MIDAZOLAM DRIP 50 mg/50mL 50 ML IV ONE (10:27)
[2020-02-22] MEDS ORDERED: fentaNYL Drip 2500mCg/250mlNS 250 ML IV ONE (10:52)
[2020-02-22] MEDS: MIDAZOLAM DRIP 50 mg/50mL 50 ML IV SCH (11:10)
[2020-02-22] MEDS ORDERED: PROPOFOL 100 ML IV ONE ×2 (11:41→18:41)
[2020-02-22 15:02] LABS: Hemoglobin 7.6 g/dL (13.5-17.5)
[2020-02-22] MEDS ORDERED: CHLO25CA56 PO (16:16)
[2020-02-22] MEDS ORDERED: FER325T PO (16:16)
[2020-02-22] MEDS ORDERED: FAMO20TA10 PO (16:16)
[2020-02-22] MEDS ORDERED: POTA-167 PO (16:16)
[2020-02-22] MEDS ORDERED: SPIR50TA5 PO (16:16)
[2020-02-22 18:25] LABS: Hemoglobin 7.4 g/dL (13.5-17.5)
[2020-02-22 18:28] LABS: Hematocrit 22.5 % (41.0-53.0)
[2020-02-22] MEDS ORDERED: phytonadione 10 MG in SODIUM CHL 0.9% 50 ML IV ONE (19:00)
[2020-02-22 20:05] LABS: Basophils # (auto) 0 10 ^3/uL (0-0.2); Eosinophils # (auto) 0.1 10 ^3/uL (0-0.8); Eosinophils % (auto) 0.5 % (0.0-7.0); Lymphocytes # (auto) 0.4 10 ^3/uL (0.4-5.4)
[2020-02-22 20:06] LABS: Basophils % (auto) 0.4 % (0.0-2.0); Hematocrit 21.7 % (41.0-53.0); Hemoglobin 7.2 g/dL (13.5-17.5); Lymphocytes % (auto) 3.6 % (10.0-50.0); Mean Corpuscular Hemoglobin 34.5 pg (28.0-32.0); Mean Corpuscular Hgb Conc. 33.2 g/dL (32.0-36.0); Mean Corpuscular Volume 103.9 fL (80.0-100.0); Monocytes # (auto) 0.9 10 ^3/uL (0-1.3); Monocytes % (auto) 8.1 % (0.0-12.0); Neutrophils % (auto) 87.4 % (37.0-80.0); Nucleated Red Blood Cells % 0.4 %; Platelet Count (auto) 80 10^3/uL (140-450); Red Blood Cells 2.08 10^6/uL (4.5-5.90); White Blood Cell 11.4 10^3/uL (4.4-10.8)
[2020-02-22 20:08] LABS: Red Cell Distribution Width 27.3 % (11.8-14.3)
[2020-02-22 20:19] LABS: Albumin 1.3 g/dL (3.4-5.0)
[2020-02-22 20:21] LABS: Amphetamine Screen, Urine NEGATIVE (NEGATIVE); Barbiturate Scree,Urine NEGATIVE (NEGATIVE); Benzodiazephine Screen, Urine POSITIVE (NEGATIVE); Cannabinoid Screen, Urine NEGATIVE (NEGATIVE); Cocaine Screen, Urine NEGATIVE (NEGATIVE); Opiate Scree,Urine NEGATIVE (NEGATIVE); Phencyclidine Screen, Urine NEGATIVE (NEGATIVE)
[2020-02-22 20:21] LABS: Lactic Acid w/Reflex 12.2 mmol/L (0.4-2.0)
[2020-02-22 20:27] LABS: Urine Bacteria FEW /hpf (None Seen); Urine Blood TRACE /uL (Negative); Urine Mucus FEW (None Seen); Urine WBC 6 /hpf (0 - 3); Urine WBC Clumps PRESENT /hpf (None Seen)
[2020-02-22 20:33] LABS: BUN/Creatinine Ratio 11.9; Total Protein 4.3 g/dL (6.4-8.2)
[2020-02-22 20:54] LABS: Calcium 5.7 mg/dL (8.5-10.1)
[2020-02-22] MEDS ORDERED: cefTRIAXone 1GM/50ML D5W 50 ML IV SCH (21:00)
--- NOTE | 2020-02-22 21:25 | NUR ---
PATIENT ADMITED TO ICU FROM ER, VIA ICU BED, SEDATED ,ON VENT. MODERATE BURGUNDY STOOL PRESENT, PT CLEANED AND LINEN CHANGED.PT ASSESSED, ORDERS REVIEWED. NOTED ABG RESULTS AND LAST CBC AND BMP. WILL REACH THE HOSPITALIST TO CORRECT THE ABNORMALS.
[2020-02-22] MEDS: PANTOPRAZOLE 40 MG/10 ML VIAL INJ IV SCH (22:00)
--- NOTE | 2020-02-22 22:30 | NUR ---
CALLED PT'S TO CLARIFY DNR STATUS. SHE DESIRES THAT PT BE REVERSED TO FULL CODE STATUS . ERIC MOORE WITNESSED THE CONVERSATION.
[2020-02-23] VITALS (99 sets, daily range): BP systolic 59–113; BP diastolic 21–53
[2020-02-23] MEDS ORDERED: SODIUM BICARBONATE 50ML VIAL 100 ML in SOD CHL 0.45% 1,000 ML IV SCH (00:30)
[2020-02-23] MEDS ORDERED: SODIUM BICARBONATE 8.4 % INJ 50ML VIAL IV ONE ×4 (00:38→13:45)
[2020-02-23 01:39] LABS: Hemoglobin 6.6 g/dL (13.5-17.5)
[2020-02-23] MEDS: NOREPINEPHRINE 8 MG/250ML KIT 250 ML IV SCH ×2 (01:40→09:26)
--- NOTE | 2020-02-23 02:00 | NUR ---
OBTAINED THE RESULT OF MIDNIGHT CBC/ BMP.HG=6.6, HTC 20. BP DROPS IN THE 80'S. PT IS HYPOTHERMIC. HOSPITALIST VENECIA, OBTAINED ORDER FOR LEVOPHED AND ONR UNIT PRBC. PLACED RECTAL PROBE AND INITIATED WARMING MEASURES USING WARN BLANKETS AND THE BAIRHUGGER. NO MORE RECTAL BLEEDING SINCE PT'S ADMISSION TO ICU.
--- NOTE | 2020-02-23 02:35 | NUR ---
BLOOD TRANSFUSSION STARTED USING THE BLOOD WARMER, TITRATING UP LEVOPHED TO MAINTAIN SBP ABOVE 90.PT ALSO PLACED ON BICARB GTT FOR LAST PH OF 7.21. K LEVEL IMPROVED TO 4 .0 O2 SAT CURRENTLY 93%
[2020-02-23] MEDS ORDERED: PROPOFOL 0 ML IV ONE (02:54)
[2020-02-23 04:50] LABS: Monocytes # (auto) 1.1 10 ^3/uL (0-1.3); Nucleated Red Blood Cells % 0.4 %
[2020-02-23 04:53] LABS: Basophils # (auto) 0.2 10 ^3/uL (0-0.2); Basophils % (auto) 1.4 % (0.0-2.0); Eosinophils # (auto) 0.2 10 ^3/uL (0-0.8); Eosinophils % (auto) 1.5 % (0.0-7.0); Hematocrit 23.6 % (41.0-53.0); Hemoglobin 7.7 g/dL (13.5-17.5); Lymphocytes # (auto) 0.6 10 ^3/uL (0.4-5.4); Mean Corpuscular Hemoglobin 33.6 pg (28.0-32.0); Mean Corpuscular Hgb Conc. 32.5 g/dL (32.0-36.0); Mean Corpuscular Volume 103.3 fL (80.0-100.0); Monocytes % (auto) 7.4 % (0.0-12.0); Neutrophils # (auto) 12.8 10 ^3/uL (1.6-8.6); Neutrophils % (auto) 85.7 % (37.0-80.0); Platelet Count (auto) 69 10^3/uL (140-450); Red Blood Cells 2.28 10^6/uL (4.5-5.90)
[2020-02-23 05:00] LABS: Red Cell Distribution Width 26.2 % (11.8-14.3)
[2020-02-23 05:22] LABS: INR 2.97 (0.9-1.15)
[2020-02-23 05:29] LABS: Albumin 1.3 g/dL (3.4-5.0); Potassium 5.2 mmol/L (3.5-5.1)
[2020-02-23 05:39] LABS: Bilirubin, Total 18.7 mg/dL (0.2-1.0); Total Protein 4.2 g/dL (6.4-8.2)
[2020-02-23 06:29] LABS: BUN/Creatinine Ratio 9.6
[2020-02-23 06:33] LABS: Calcium 5.9 mg/dL (8.5-10.1)
[2020-02-23] MEDS ORDERED: SODIUM BICARBONATE 50ML VIAL 50 ML in SOD CHL 0.45% 1,000 ML IV SCH (07:30)
[2020-02-23] MEDS ORDERED: SODIUM BICARBONATE 50ML VIAL 150 ML in SOD CHL 0.45% 1,000 ML IV SCH (07:45)
--- NOTE | 2020-02-23 07:45 | NUR ---
TEMP 98.4 RECTALLY. TURNED OFF BEAR HUGGER. BLANKETS ON PT. MONITORING TEMP.
--- NOTE | 2020-02-23 08:05 | NUR ---
SBP DECREASED TO 73. LEVOPHED GTT. AT 30 MCG. TURNED OFF PROPOFOL GTT. MONITORING BP.
--- NOTE | 2020-02-23 08:50 | NUR ---
Called/paged called re:. Waiting for call back. Continue care.
--- NOTE | 2020-02-23 08:55 | NUR ---
returned call Dr. RIVERA returned call, updated on patient status and reason for call, orders received. Continue care.
[2020-02-23] MEDS ORDERED: ALBUMIN 25% 100 ML IV ONE (09:00)
[2020-02-23] MEDS ORDERED: PHENYLEPHRINE IV 250 ML IV ONE (09:01)
[2020-02-23] MEDS: PHENYLEPHRINE IV 250 ML IV SCH ×2 (09:25→11:50)
[2020-02-23] MEDS: fentaNYL Drip 2500mCg/250mlNS 250 ML IV SCH ×2 (10:00→11:03)
[2020-02-23] MEDS: PANTOPRAZOLE 40 MG/10 ML VIAL INJ IV SCH ×2 (10:08→21:58)
[2020-02-23] MEDS: MIDAZOLAM DRIP 50 mg/50mL 50 ML IV SCH ×2 (10:52→14:32)
--- NOTE | 2020-02-23 11:08 | NUR ---
DR. GAFFNEY Provider/Hospitalist at bedside. GAVE UPDATE ON PT. MAXED ON NEOSYNEPHRINE GTT. AT 180 MCG. AND LEVOPHED GTT. AT 30 MCG. WITH SBP REMAINING IN THE 80'S. ORDER RECEIVED FOR VASOPRESSIN GTT. FOR SEPTIC SHOCK.
[2020-02-23] MEDS ORDERED: VASOPRESSIN 50 UNITS in D5W 5% 247.5 ML IV SCH (11:15)
[2020-02-23] MEDS: VASOPRESSIN 50 UNITS in D5W 5% 247.5 ML IV SCH (11:49)
[2020-02-23 11:54] LABS: Hematocrit 29.1 % (41.0-53.0); Hemoglobin 8.5 g/dL (13.5-17.5)
--- NOTE | 2020-02-23 12:15 | NUR ---
WOUND CARE NOTE: PATIENT ADDED TO SKIN INTEGRITY MONITORING D/T INTUBATION STATUS. PATIENT ADMITTED TO [facility] WITH DIAGNOSIS OF GI BLEED. CURRENT GWEN SCORE IS 12, PATIENT IS INTUBATED, SEDATED. BEDSDIE NURSE UNAVAILABLE AT THIS TIME. HE IS ON MULTIPLE PRESSORS, TOO UNSTABLE FOR TURNING AT THIS TIME. WILL ATTEMPT TO ASSESS HIS SKIN AT LATER TIME, WHEN MORE STABLE. IN THE MEANTIME, PATIENT WOUND BENEFIT FROM FREQUENT TURN SCHEDULE Q 2 HOURS, PRN CONDITION PERMITS, WITH PRESSURE REDISTRIBUTION USING PILLOWS/WEDGES, BID/PRN APPLICATION WITH MOISTURE BARRIER CREAM, OPTIFOAM GENTLE SACRAL DRESSING PREVENTATIVE, SKIN/WOUND CARE PLAN, DIETARY CONSULT FOR INTUBATION/IMMOBILITY, CONTINUED MONITORING BY WOUND CARE TEAM.
[2020-02-23] MEDS ORDERED: MEROPENEM 1GM IVPB 100 ML IV ONE (12:30)
--- NOTE | 2020-02-23 12:40 | NUR ---
Called/paged Dr. GAFFNEY called re:[OCTREOTIDE GTT. WAS D'C'D YEST. AND DR. CARDONA WANTED TO VERIFY IF DR. GAFFNEY WANTS TO CONTINUE IT SINCE HIS PROGRESS NOTE STATES TO KEEP OCTREOTIDE GTT. INFUSING]. Waiting for call back. Continue care.
--- NOTE | 2020-02-23 12:50 | NUR ---
TECH HERE FOR JACQUE. CHEST US.
[2020-02-23] MEDS: ALBUMIN 25% 50 ML IV SCH ×2 (12:52→20:49)
--- NOTE | 2020-02-23 12:53 | NUR ---
returned call Dr. GAFFNEY returned call, updated on patient status and reason for call, orders received TO CONTINUE OCTREOTIDE GTT. CONTINUOUSLY. Continue care.
--- NOTE | 2020-02-23 13:15 | NUR ---
Called/paged called re:. Waiting for call back. Continue care.
--- NOTE | 2020-02-23 13:26 | NUR ---
DR. CARDONA Provider/Hospitalist at bedside. NEW ORDERS RECEIVED.
[2020-02-23] MEDS: OCTREOTIDE ACETATE 500 MCG in SODIUM CHL 0.9% 99 ML IV SCH ×2 (13:39→21:31)
--- NOTE | 2020-02-23 15:15 | NUR ---
DR. RUBIO Provider/Hospitalist at bedside. GAVE UPDATE ON PT. NEW ORDERS RECEIVED.
[2020-02-23 15:25] LABS: Albumin 1.6 g/dL (3.4-5.0); BUN/Creatinine Ratio 8.6; Potassium 5.3 mmol/L (3.5-5.1)
[2020-02-23 15:40] LABS: Lactic Acid w/Reflex 14.5 mmol/L (0.4-2.0)
[2020-02-23 15:41] LABS: Bilirubin, Total 19.2 mg/dL (0.2-1.0); Total Protein 4.3 g/dL (6.4-8.2)
--- NOTE | 2020-02-23 15:44 | NUR ---
LAB CALLED WITH CRITICAL CMP RESULTS, GLUCOSE-32, CA- 5.3. DR. RUBIO IN ICU AND GAVE RESULTS. NEW ORDER RECEIVED FOR 1 AMP D50 IVP WILL GIVE PT.
[2020-02-23 15:46] LABS: Calcium 5.3 mg/dL (8.5-10.1)
[2020-02-23] MEDS ORDERED: DEXTROSE 50% SYRINGE 0 ML IV ONE (15:53)
[2020-02-23] MEDS ORDERED: DEXTROSE 50% SYRINGE 50 ML IV ONE (15:59)
[2020-02-23] MEDS ORDERED: DEXTROSE (50%) 50ML SYRG IV ONE (16:00)
[2020-02-23] MEDS: SODIUM BICARBONATE 50ML VIAL 150 ML in D5W 5% 1,000 ML IV SCH (16:05)
[2020-02-23] MEDS: PHENYLEPHRINE INJ 40 MG in SODIUM CHL 0.9% 250 ML IV SCH ×2 (16:06→22:56)
[2020-02-23] MEDS ORDERED: BUMETANIDE 2.5mg/10ml (0.25 mg/ml) INJ IV ONE (16:45)
[2020-02-23] MEDS ORDERED: CALCIUM GLUC 4.65meq/50ml D5AE 50 ML IV ONE (16:45)
[2020-02-23] MEDS ORDERED: BUMETANIDE INJECTION 10 ML ONE (17:36)
[2020-02-23] MEDS: NOREPINEPHRINE BITARTRATE 16 MG in SODIUM CHL 0.9% 250 ML IV SCH (18:11)
[2020-02-23 19:17] LABS: Hematocrit 23.5 % (41.0-53.0); Hemoglobin 7.7 g/dL (13.5-17.5)
--- NOTE | 2020-02-23 20:00 | NUR ---
RECIEVED PT VENTILATED, FIO2 INCREASED FROM 50 TO 60% BY RT PREVIOUSLY DUE TO LOW SATS 89-90%, NO SEDATION, COMATOSE, PT ON MULTIPLE VASOPRESSORS, SEE IV SPREAD SHEET, SCANT URINE OUTPUT, MD AWARE , , COLOR JAUNDICE, ORAL CARE DONE MOUTH BLOODY, SEE INTERVENTIONS FOR HEAD TO TOE ASSESSMENT AND VITAL SIGNS
[2020-02-23] MEDS: MEROPENEM 1GM IVPB 100 ML IV SCH (21:58)
[2020-02-23] MEDS ORDERED: OCTREOTIDE ACETATE 100 MCG/ML VL SUBCUT SCH (22:00)
[2020-02-24] VITALS (112 sets, daily range): BP systolic 80–125; BP diastolic 35–62
--- NOTE | 2020-02-24 | NUR ---
UNABLE TO TURN OFF GTTS FOR LAB DRAW VIA TLC, H/H DRAWN BY TECH
--- NOTE | 2020-02-24 01:00 | NUR ---
H/H 7.7/23.5 UNCHANGED FROM 1800 DRAW ON 02/22
[2020-02-24 01:29] LABS: Hemoglobin 7.7 g/dL (13.5-17.5)
[2020-02-24 01:30] LABS: Hematocrit 23.5 % (41.0-53.0)
[2020-02-24] MEDS: NOREPINEPHRINE BITARTRATE 16 MG in SODIUM CHL 0.9% 250 ML IV SCH ×3 (01:57→18:52)
--- NOTE | 2020-02-24 03:00 | NUR ---
COMPLETE BATH AND PARTIAL LINEN CHANGE, PT CLEANSED OF SMALL LOOSE BURGANDY STOOL, NO CLOTS, PT TOLERATED THE ACTIVITY WITHOUT BECOMING HEMODYNAMICLY UNSTABLE
--- NOTE | 2020-02-24 04:00 | NUR ---
PT TEMP DID DROP TO 97 RECTAL AFTER BATH, WARMING MEASURES BEGUN
[2020-02-24] MEDS: SODIUM BICARBONATE 50ML VIAL 150 ML in D5W 5% 1,000 ML IV SCH ×2 (04:10→14:32)
[2020-02-24] MEDS: PHENYLEPHRINE INJ 40 MG in SODIUM CHL 0.9% 250 ML IV SCH ×5 (04:11→18:05)
[2020-02-24] MEDS: ALBUMIN 25% 50 ML IV SCH (04:22)
[2020-02-24 04:39] LABS: Basophils # (auto) 0.1 10 ^3/uL (0-0.2); Basophils % (auto) 0.4 % (0.0-2.0); Eosinophils # (auto) 1.3 10 ^3/uL (0-0.8); Hematocrit 22.2 % (41.0-53.0); Hemoglobin 7.3 g/dL (13.5-17.5); Lymphocytes # (auto) 1.2 10 ^3/uL (0.4-5.4); Lymphocytes % (auto) 6.4 % (10.0-50.0); Mean Corpuscular Hemoglobin 33.9 pg (28.0-32.0); Mean Corpuscular Hgb Conc. 32.8 g/dL (32.0-36.0); Mean Corpuscular Volume 103.3 fL (80.0-100.0); Monocytes # (auto) 1.4 10 ^3/uL (0-1.3); Monocytes % (auto) 7.7 % (0.0-12.0); Neutrophils # (auto) 14.3 10 ^3/uL (1.6-8.6); Neutrophils % (auto) 78.5 % (37.0-80.0); Nucleated Red Blood Cells % 1.2 %; Platelet Count (auto) 59 10^3/uL (140-450); Red Blood Cells 2.15 10^6/uL (4.5-5.90); Red Cell Distribution Width 23.6 % (11.8-14.3); White Blood Cell 18.2 10^3/uL (4.4-10.8)
[2020-02-24 04:58] LABS: Potassium 4.7 mmol/L (3.5-5.1)
[2020-02-24 05:01] LABS: INR 6.02 (0.9-1.15)
[2020-02-24 05:13] LABS: Lactic Acid w/Reflex 15.6 mmol/L (0.4-2.0)
[2020-02-24] MEDS: PHYTONADIONE (VIT K)10 MG/ML 1ML VIAL SUBCUT SCH (05:22)
[2020-02-24 05:27] LABS: Albumin 1.7 g/dL (3.4-5.0); BUN/Creatinine Ratio 7.4; Bilirubin, Total 19.6 mg/dL (0.2-1.0)
[2020-02-24] MEDS: MIDAZOLAM DRIP 50 mg/50mL 50 ML IV SCH (06:36)
[2020-02-24] MEDS ORDERED: CALCIUM GLUC 4.65meq/50ml D5AE 50 ML IV ONE (07:00)
[2020-02-24] MEDS ORDERED: MAGNESIUM SULFATE 1GM/100ML 100 ML IV ONE ×2 (07:00→09:15)
[2020-02-24] MEDS: OCTREOTIDE ACETATE 500 MCG in SODIUM CHL 0.9% 99 ML IV SCH ×2 (07:20→18:04)
[2020-02-24] MEDS: VASOPRESSIN 50 UNITS in D5W 5% 247.5 ML IV SCH (07:44)
[2020-02-24] MEDS: PANTOPRAZOLE 40 MG/10 ML VIAL INJ IV SCH ×2 (09:41→22:45)
[2020-02-24] MEDS: MEROPENEM 1GM IVPB 100 ML IV SCH ×2 (09:42→22:45)
--- NOTE | 2020-02-24 09:50 | NUR ---
DR. GAFFNEY Provider/Hospitalist at bedside. GAVE UPDATE ON PT. NEW ORDERS RECEIVED TO GIVE BLOOD PRODUCTS TODAY.
--- NOTE | 2020-02-24 10:00 | NUR ---
PT. HAD LG. BLOODY LIQUID STOOL. DR. GAFFNEY MADE AWARE DURING ROUNDS AND SAW BLOODY STOOL. EUGENE CARE DONE AND LINENS CHANGED. O2 SATS DECREASED TO 87%-88% WHILE PT. BEING TURNED. GAVE 100% FIO2. FOREST, RT IN ICU AND INCREASED FIO2 TO 100%. O2 SATS SLOWLY INCREASED BACK TO LOW 90'S.
--- NOTE | 2020-02-24 10:45 | NUR ---
1ST UNIT OF PRBC'S READY. COULD NOT FIND CONSENT IN PT'S CHART FOR BLOOD TRANSFUSION. CALLED , NO ANSWER, LEFT MESSAGE.
[2020-02-24] MEDS: fentaNYL Drip 2500mCg/250mlNS 250 ML IV SCH (11:03)
--- NOTE | 2020-02-24 11:08 | NUR ---
Nutrition Assessment/consult Notes please see attached link for complete assessment Est energy needs IBW 86 [id number] kcal (25-30 kcal/kg), Est protein: 51-68g (0.6-0.8g/kg r/t elev ammonia) Will reassess prn. Addendum: 02/24/20 at [address] Amended: Links added.
--- NOTE | 2020-02-24 12:00 | NUR ---
WOUND CARE NOTE: IN TO SEE PATIENT AT THIS TIME FOR SKIN INTEGRITY. PATIENT CONTINUES TO BE INTUBATED, NON RESPONSIVE. HE HAS GENERALIZED EDEMA, WITH 4+ PITTING EDEMA NOTED TO LIMBS. PATIENT CONTINUES TO BE ON MULTIPLE VASOPRESSORS, OFTEN UNSTABLE FOR REPOSITIONING. CURRENT GWEN SCORE IS 11. PATIENT HAS DEVELOPED AN INTACT DTI TO THE LEFT HEEL. NO BLISTERING NOTED. BOTH PATIENT'S LOWER EXTREMITIES ELEVATED UP ONTO PILLOWS, WITH HEELS OFFLOADED. D/T HIS PITTING EDEMA, PATIENT SHOULD NOT HAVE JOE FOAM BOOTS PLACED ON FEET/LEGS. SKIN/WOUND CARE PLAN UPDATED. RECOMMEND: ELEVATION OF BLE UP ON PILLOWS, HEELS SHOULD NOT COME IN CONTACT WITH BED, CONTINUATION WITH ALL WOUND CARE ORDERS PREVIOUSLY PRESCRIBED BY Saeed. WOUND CARE TEAM WILL CONTINUE TO MONITOR. Addendum: 02/24/20 at 1456 by Torri Kong RN Amended: Links added.
--- NOTE | 2020-02-24 12:22 | NUR ---
GAVE CONSENT OVER THE PHONE FOR BLOOD TRANSFUSION WITH 2ND. RN VERIFYING ON PHONE. STARTED 1ST UNIT OF PRBC'S VIA TLC RT. IJ.
--- NOTE | 2020-02-24 13:44 | NUR ---
DR. CARDONA Provider/Hospitalist at bedside. GAVE UPDATE ON PT. NEW ORDERS RECEIVED.
[2020-02-24] MEDS ORDERED: phytonadione 10 MG in SODIUM CHL 0.9% 50 ML IV ONE (13:45)
[2020-02-24] MEDS ORDERED: BUMETANIDE 2.5mg/10ml (0.25 mg/ml) INJ IV ONE (13:45)
--- NOTE | 2020-02-24 14:15 | NUR ---
1ST UNIT OF PRBC'S COMPLETED. NO ADVERSE REACTION.
--- NOTE | 2020-02-24 14:25 | NUR ---
STARTED 1ST UNIT OF FFP VIA TLC RT. IJ. GAVE PHONE CONSENT PREVIOUSLY.
[2020-02-24] MEDS ORDERED: BUMETANIDE INJECTION 10 ML ONE (14:39)
--- NOTE | 2020-02-24 15:00 | NUR ---
PT. HAD COPIOUS AMOUNT OF LIQUID BURGANDY STOOL. EUGENE CARE DONE, COMPLETE LINEN AND GOWN CHANGE. PT. GIVEN 100% FIO2 DURING CHANGE.
--- NOTE | 2020-02-24 15:15 | NUR ---
IV removal IV DC'd with sterile technique, catheter fully intact. Pressure dressing applied to site. Patient tolerated procedure well. Discharged with aftercare instructions per MD. NOTE: IV 18 GAUGE RAC, BLEEDING LG. AMOUNT, APPLIED PRESSURE FOR 5 MIN. AND APPLIED 4X4 WITH FOAM PRESSURE TAPE. PULSE RT. RADIAL WEAK, PALPABLE.
--- NOTE | 2020-02-24 15:25 | NUR ---
DR. RUBIO Provider/Hospitalist at bedside. GAVE UPDATE ON PT. NEW ORDERS RECEIVED.
--- NOTE | 2020-02-24 15:40 | NUR ---
1ST UNIT OF FFP COMPLETED.
--- NOTE | 2020-02-24 16:15 | NUR ---
STARTED 1 PACK PLATELETS VIA TLC RT. IJ. PREVIOUSLY GAVE CONSENT.
[2020-02-24] MEDS: FUROSEMIDE INJECTION 100 MG in D5W 5% 100 ML IV SCH ×2 (16:53→20:20)
--- NOTE | 2020-02-24 19:30 | NUR ---
REPORT RECEIVED AND ASSUMED CARE; SEE INTERVENTIONS FOR ASSESSMENT; VS STABLE WITH EXCEPTION TO O2 SATS AT 87-88%; PT. INTUBATED/SEDATED/VENTED; WILL CONT. TO MONITOR.
--- NOTE | 2020-02-24 20:27 | NUR ---
RT AT BEDSIDE TO OBTAIN ABG; PT. DESATS TO 87-88%; GUPPY BREATHING ON VENT; PT. ON SODIUM BICARB GTT; WILL CONT. TO MONITOR.
--- NOTE | 2020-02-24 21:00 | NUR ---
SEDATION VACATION NOT PERFORMED IT IS NOT APPROPRIATE AT THIS TIME; WILL CONT. TO MONITOR.
--- NOTE | 2020-02-24 22:15 | NUR ---
RT AT BEDSIDE TO INCREASE PEEP TO 10 PT. O2 SATS ARE CONT. LOW AT 90%; WILL CONT. TO MONITOR.
[2020-02-25] VITALS (104 sets, daily range): BP systolic 88–135; BP diastolic 33–63
[2020-02-25] MEDS ORDERED: NOREPINEPHRINE 8 MG/250ML KIT 250 ML IV ONE (00:53)
[2020-02-25] MEDS ORDERED: NOREPINEPHRINE BITARTRATE 2 ML IV ONE (00:53)
[2020-02-25 02:00] LABS: Hemoglobin 8.4 g/dL (13.5-17.5)
[2020-02-25 02:02] LABS: Hematocrit 24.8 % (41.0-53.0)
[2020-02-25 02:18] LABS: INR 3.19 (0.9-1.15); Partial Thromboplastin Time 66.4 sec (23.64-32.05)
[2020-02-25 02:21] LABS: BUN/Creatinine Ratio 6.7
[2020-02-25 02:24] LABS: Potassium 2.8 mmol/L (3.5-5.1)
[2020-02-25 02:26] LABS: Calcium 5.1 mg/dL (8.5-10.1)
[2020-02-25] MEDS: SODIUM BICARBONATE 50ML VIAL 150 ML in D5W 5% 1,000 ML IV SCH (03:41)
[2020-02-25] MEDS ORDERED: MAGNESIUM SULFATE 1GM/100ML 100 ML IV ONE ×2 (04:45→13:30)
[2020-02-25] MEDS ORDERED: POTASSIUM CHL 20MEQ/100ML 100 ML IV ONE (04:45)
[2020-02-25] MEDS ORDERED: CALCIUM GLUC 4.65meq/50ml D5AE 50 ML IV ONE ×3 (04:45→17:15)
[2020-02-25] MEDS: OCTREOTIDE ACETATE 500 MCG in SODIUM CHL 0.9% 99 ML IV SCH ×2 (05:00→15:39)
[2020-02-25] MEDS: POTASSIUM CHL 20MEQ/100ML 100 ML IV SCH ×6 (05:15→22:42)
--- NOTE | 2020-02-25 05:40 | NUR ---
PT. HAD VERY LARGE, DARK. BLACK, LOOSE, STOOL; EUGENE-CARE AND PARTIAL LINEN CHANGE PROVIDED; PT. TOLERATED FAIR; WILL CONT. TO MONITOR.
[2020-02-25] MEDS: MAGNESIUM SULFATE 1GM/100ML 100 ML IV SCH ×2 (06:00→06:25)
[2020-02-25] MEDS: MIDAZOLAM DRIP 50 mg/50mL 50 ML IV SCH ×4 (08:48→21:58)
--- NOTE | 2020-02-25 09:00 | NUR ---
SEDATION VACATION; Patient requires sedation to control respiratory rate. Sedation vacation will not be done at this time to prevent further tachypnea Addendum: 02/25/20 at 1102 by Jeovany Alcala RN Amended: Links added.
[2020-02-25] MEDS: PHENYLEPHRINE INJ 40 MG in SODIUM CHL 0.9% 250 ML IV SCH ×2 (10:00→17:30)
--- NOTE | 2020-02-25 10:30 | NUR ---
REPOSITIONING; Patient repositioned gently to right side, became tachypneic with RR 30-35 O2 saturations decreased to 84, respiratory pattern became labored. Waited 10 minutes for patient to recover from activity, continued to display above symptoms, pillow removed patient to remain supine at this time.
--- NOTE | 2020-02-25 10:30 | NUR ---
SKIN CARE; Unable to perform skin care as patient does not tolerate repositioning. Addendum: 02/25/20 at 1101 by Jeovany Alcala RN Amended: Links added.
[2020-02-25] MEDS: FUROSEMIDE INJECTION 100 MG in D5W 5% 100 ML IV SCH ×2 (10:31→12:00)
[2020-02-25] MEDS: PANTOPRAZOLE 40 MG/10 ML VIAL INJ IV SCH ×2 (10:31→22:00)
[2020-02-25] MEDS: MEROPENEM 1GM IVPB 100 ML IV SCH ×2 (10:31→21:59)
[2020-02-25] MEDS: PHYTONADIONE (VIT K)10 MG/ML 1ML VIAL SUBCUT SCH (10:31)
[2020-02-25] MEDS: fentaNYL Drip 2500mCg/250mlNS 250 ML IV SCH ×2 (11:03→16:19)
[2020-02-25] MEDS: VASOPRESSIN 50 UNITS in D5W 5% 247.5 ML IV SCH ×2 (11:15→22:33)
[2020-02-25] MEDS: SODIUM BICARBONATE 50ML VIAL 50 ML in SOD CHL 0.45% 1,000 ML IV SCH (13:00)
[2020-02-25] MEDS ORDERED: ALBUMIN 25% 100 ML IV ONE (13:00)
[2020-02-25] MEDS ORDERED: FUROSEMIDE INJECTION 100 MG in D5W 5% 100 ML IV SCH (13:00)
--- NOTE | 2020-02-25 14:40 | NUR ---
FAMILY PHONE CALL; Spoke with patient's and daughter, they state that they have reconsidered patient's code status and at this time they are considering withdrawal of care. Family to come to bedside tomorrow to see patient and speak with physician regarding possible compassionate extubation.
[2020-02-25 14:56] LABS: Hematocrit 24.8 % (41.0-53.0); Hemoglobin 8.5 g/dL (13.5-17.5); Mean Corpuscular Hemoglobin 32.7 pg (28.0-32.0)
[2020-02-25 14:58] LABS: Mean Corpuscular Hgb Conc. 34.1 g/dL (32.0-36.0); Mean Corpuscular Volume 96.1 fL (80.0-100.0); Platelet Count (auto) 59 10^3/uL (140-450); Red Blood Cells 2.59 10^6/uL (4.5-5.90); White Blood Cell 14.3 10^3/uL (4.4-10.8)
[2020-02-25 15:22] LABS: Lactic Acid w/Reflex 8.8 mmol/L (0.4-2.0)
[2020-02-25 15:23] LABS: Basophils % (manual) 0 (0.0-2.0); Blast Cells 0; Metamyelocytes % 0; Myelocytes % 0; Promyelocytes % 0; Reactive Lymphocytes 0
[2020-02-25 15:26] LABS: INR 4.51 (0.9-1.15)
[2020-02-25 15:33] LABS: Albumin 1.9 g/dL (3.4-5.0); BUN/Creatinine Ratio 6.4; Bilirubin, Total 22.6 mg/dL (0.2-1.0); Total Protein 4.3 g/dL (6.4-8.2)
[2020-02-25 15:47] LABS: Calcium 5.1 mg/dL (8.5-10.1); Potassium 2.6 mmol/L (3.5-5.1)
[2020-02-25 15:57] LABS: Band Neutrophils % (manual) 11; Eosinophils % (manual) 1 (0-7); Lymphocytes % (manual) 3 (10.0-50.0); Monocytes % (manual) 7 (0-12)
--- NOTE | 2020-02-25 18:41 | NUR ---
Respiratory note: RECEIVED PT ON VENT [id number]. VENT CONNECTED TO RED OUTLET AND O2 SOURCE ALARMS ARE SET AND AUDIBLE AMBU BAG AND MASK AT BEDSIDE. BS ARE DIMINISHED T/O, NO SXD DONE AT THIS TIME. LIPS APPEAR SCABBED DRY WITH MINIMAL PEALING. AREA AROUND CHIN ALSO HAS SMALL SCABS NO ACTIVE BLEEDING NOTED. RNS ARE AWARE. CURRENT TEMP READS 98.4F. RT NAME AND PAGER ASSIGNMENT WRITTEN ON PTS ROOM BOARD. WILL CONTINUE TO MONITOR Q2H AND NEEDED.
--- NOTE | 2020-02-25 20:05 | NUR ---
TURNING PATIENT'S SATURATION IS 96%. PATIENT TURNED TO LT.SIDE THEN SATS DROPPED TO 91-92%. RESP.TRUJILLO INCREASED TO 20-24 FOR 10 MINUTES. OTHER VITAL SIGNS ARE STABLE.
--- NOTE | 2020-02-25 20:21 | NUR ---
Respiratory note: AT BEDSIDE FOR ROUTINE VENT CHECK. NO CHANGES MADE WILL CONTINUE TO MONITOR.
--- NOTE | 2020-02-25 21:00 | NUR ---
REPORT GIVEN AND CARE ENDORSED TO LANG MENDOZA RN.
[2020-02-25] MEDS: BUMETANIDE 2.5mg/10ml (0.25 mg/ml) INJ IV SCH (21:59)
--- NOTE | 2020-02-25 22:25 | NUR ---
Respiratory note: AT BEDSIDE FOR ROUTINE VENT CHECK. NO CHANGES MADE WILL CONTINUE TO MONITOR.
--- NOTE | 2020-02-25 23:30 | NUR ---
Assumed care of the patient.
[2020-02-26] VITALS (91 sets, daily range): BP systolic 91–134; BP diastolic 42–54
--- NOTE | 2020-02-26 00:18 | NUR ---
Respiratory note: AT BEDSIDE FOR ROUTINE VENT CHECK. CURRENT BODY TEMP READS 97.9F. NO CHANGES MADE WILL CONTINUE TO MONITOR.
[2020-02-26] MEDS: OCTREOTIDE ACETATE 500 MCG in SODIUM CHL 0.9% 99 ML IV SCH ×3 (01:00→21:26)
--- NOTE | 2020-02-26 02:11 | NUR ---
Respiratory note: AT BEDSIDE FOR ROUTINE VENT CHECK. CURRENT BODY TEMP READS 97.7F. BS ARE COURSE SXD VIA ETT FOR SMALL OCHOA/BROWN TINGE. NO VENT CHANGES MADE WILL CONTINUE TO MONITOR.
[2020-02-26] MEDS: SODIUM BICARBONATE 50ML VIAL 50 ML in SOD CHL 0.45% 1,000 ML IV SCH ×2 (03:00→13:53)
--- NOTE | 2020-02-26 04:00 | NUR ---
RN turned patient and patient desaturated to the low 80's and took approx. 10 minutes to come back up to the low 90's. Patient is already on 100% FIO2. RN will continue to monitor and assess patient.
[2020-02-26 04:16] LABS: Hematocrit 26.9 % (41.0-53.0); Hemoglobin 8.9 g/dL (13.5-17.5); Mean Corpuscular Hemoglobin 32.6 pg (28.0-32.0); Mean Corpuscular Hgb Conc. 33.2 g/dL (32.0-36.0); Mean Corpuscular Volume 98.1 fL (80.0-100.0); Platelet Count (auto) 48 10^3/uL (140-450); Red Blood Cells 2.74 10^6/uL (4.5-5.90); White Blood Cell 12.9 10^3/uL (4.4-10.8)
[2020-02-26 04:29] LABS: Red Cell Distribution Width 22.2 % (11.8-14.3)
[2020-02-26 04:31] LABS: Albumin 2.2 g/dL (3.4-5.0); Basophils % (manual) 0 (0.0-2.0); Blast Cells 0; Eosinophils % (manual) 0 (0-7); Metamyelocytes % 0; Myelocytes % 0; Promyelocytes % 0; Reactive Lymphocytes 0
[2020-02-26 04:33] LABS: Lactic Acid w/Reflex 7.4 mmol/L (0.4-2.0)
[2020-02-26 04:38] LABS: Band Neutrophils % (manual) 21; Lymphocytes % (manual) 4 (10.0-50.0); Monocytes % (manual) 7 (0-12)
[2020-02-26 04:51] LABS: BUN/Creatinine Ratio 6.4; Magnesium 1.7 mg/dL (1.6-2.6); Phosphorus 6.5 mg/dL (2.5-4.90); Total Protein 4.6 g/dL (6.4-8.2)
[2020-02-26 04:53] LABS: Calcium 5.4 mg/dL (8.5-10.1); INR 5.73 (0.9-1.15)
--- NOTE | 2020-02-26 05:00 | NUR ---
Hospitalist paged: RN paged hospitalist d/t patient having a low blood sugar per lab. RN assessed patients blood glucose with accu-check machine and noted BS to be 49.
[2020-02-26] MEDS ORDERED: DEXTROSE 50% SYRINGE 50 ML IV ONE ×2 (05:02→11:43)
[2020-02-26] MEDS: POTASSIUM CHL 20MEQ/100ML 100 ML IV SCH ×2 (05:15→08:45)
[2020-02-26] MEDS ORDERED: DEXTROSE (50%) 50ML SYRG IV PRN (05:15)
--- NOTE | 2020-02-26 05:21 | NUR ---
Hospitalist returned page and notified of patient condition. New orders obtained and verified.
[2020-02-26] MEDS ORDERED: POTASSIUM CHL 20MEQ/100ML 200 ML IV ONE (05:22)
--- NOTE | 2020-02-26 05:45 | NUR ---
BS rechecked after administration of Dextrose 50% and patient blood glucose was noted to be 107. RN will continue to monitor and assess patient's blood glucose.
[2020-02-26] MEDS ORDERED: ACCU-CHEK COMFORT CURVE STRIP VI SCH (06:00)
[2020-02-26] MEDS: MIDAZOLAM DRIP 50 mg/50mL 50 ML IV SCH ×4 (08:40→21:31)
[2020-02-26] MEDS: PHENYLEPHRINE INJ 40 MG in SODIUM CHL 0.9% 250 ML IV SCH (08:53)
[2020-02-26] MEDS: PANTOPRAZOLE 40 MG/10 ML VIAL INJ IV SCH ×2 (09:36→21:53)
[2020-02-26] MEDS: PHYTONADIONE (VIT K)10 MG/ML 1ML VIAL SUBCUT SCH (09:37)
[2020-02-26] MEDS: BUMETANIDE 2.5mg/10ml (0.25 mg/ml) INJ IV SCH ×2 (09:37→21:53)
[2020-02-26] MEDS: MEROPENEM 1GM IVPB 100 ML IV SCH ×2 (09:37→21:53)
--- NOTE | 2020-02-26 10:00 | NUR ---
SBP ONE TEENS TO 120'S. TITRATING NEOSYNEPHRINE GTT. DOWN TO KEEP SBP >90. MONITORING BP.
--- NOTE | 2020-02-26 10:00 | NUR ---
PT. TURNED TO LT. SIDE ON VENT WITH FIO2-100%. O2 SATS DECREASED TO 87%-88% WITH GOOD PLETH. TOOK ALMOST 10 MIN. FOR O2 SATS TO INCREASE TO 90%.
--- NOTE | 2020-02-26 10:05 | NUR ---
DR. CORREA Provider/Hospitalist at bedside. NEW ORDERS RECEIVED.
--- NOTE | 2020-02-26 10:55 | NUR ---
DR. CARDONA Provider/Hospitalist at bedside. GAVE UPDATE ON PT. NEW ORDERS RECEIVED.
[2020-02-26] MEDS: fentaNYL Drip 2500mCg/250mlNS 250 ML IV SCH (11:03)
[2020-02-26 11:12] LABS: Protein, Urine 217.8 mg/dL (0.0-11.9)
[2020-02-26] MEDS ORDERED: phytonadione 10 MG in SODIUM CHL 0.9% 50 ML IV ONE (11:15)
--- NOTE | 2020-02-26 11:35 | NUR ---
DR. GAFFNEY Provider/Hospitalist at bedside. GAVE UPDATE ON PT.
[2020-02-26] MEDS: ACCU-CHEK COMFORT CURVE STRIP VI SCH ×3 (11:43→18:00)
--- NOTE | 2020-02-26 11:45 | NUR ---
DR. Molly VARGHESE'S OFFICE CALLED TO SPEAK WITH MD TO SEE IF CAN TAKE CONSULT TO SEE PT. WAITING FOR CALL BACK.
--- NOTE | 2020-02-26 12:00 | NUR ---
PLACED PT. SUPINE WITH HOB 30 DEGREES.
--- NOTE | 2020-02-26 12:10 | NUR ---
Nutrition Followup Note Wt 118.0 kg Pt intubated and off sedation per MD note. Pt with no diet order and no alternate nutrition initiated. Pt is jaundice with elevated ammonia with no now ammonia lab since 02/21. Est energy needs IBW 86 [id number] kcal (25-30 kcal/kg), Est protein: 51-68g (0.6-0.8g/kg r/t elev ammonia) Will reassess prn. Labs: BUn 27H, Creat 4.24H, Alb 2.2L, AST 5606H, ALT 810H, ALK PHOS 820H, GLUC 107H BM: 1 BM 02/25 per RN note Skin: BS 11 high risk, full details in care taker note PES: Altered nutrition related lab values r.t current chronic medical condition aeb elev LFTs, severe hypoalb Impaired swallowing r/t current medical condition aeb pt`s intubated sedated with order of NPO Comments :1)consider PN support to meet > 75% of needs if pt continues to be npo and GI is not accessible 2) advance diet as medically feasible 3) continue current plan of care Expected Outcomes/Goals: pt will have improved labs pt will advance and william po F/u high 2-3 days
[2020-02-26] MEDS: NOREPINEPHRINE BITARTRATE 16 MG in SODIUM CHL 0.9% 250 ML IV SCH ×2 (13:54→22:17)
--- NOTE | 2020-02-26 14:00 | NUR ---
PT. HEMODYNAMICALLY UNSTABLE TO TURN AT THIS TIME. O2 SATS 90%-91% ON VENT WITH FIO2-100%.
[2020-02-26] MEDS ORDERED: CALCIUM CHL 100MG/ML 1,000 MG in D5W 5% 100 ML IV ONE (14:45)
[2020-02-26] MEDS ORDERED: MAGNESIUM SULFATE 1GM/100ML 100 ML IV ONE (14:45)
--- NOTE | 2020-02-26 15:24 | NUR ---
Family updated on pt status Family of HCAD LEBRON updated on patient's status and condition. All questions and concerns addressed. verbalized understanding. PT'S. , MOM AND 3 CHILDREN CAME IN TO VISIT FOR 10 MIN. PT. CRITICAL, STABLE AT THIS TIME, OK FOR VISIT.
--- NOTE | 2020-02-26 16:00 | NUR ---
PT. UNSTABLE TO TURN.
--- NOTE | 2020-02-26 18:00 | NUR ---
PT. UNSTABLE TO TURN.
--- NOTE | 2020-02-26 20:00 | NUR ---
PT UNABLE TO TURN AT THIS TIME DUE TO HIGH FI02 REQUIREMENTS AND PT TRENDING SATS 89%-91%. PER DAYSHIFT RN PT DESATURATED WHEN HE WAS TURNED LAST AND TOOK AWHILE TO COME BACK UP.
[2020-02-26] MEDS: VASOPRESSIN 50 UNITS in D5W 5% 247.5 ML IV SCH (21:30)
[2020-02-26] MEDS: DEXTROSE (50%) 50ML SYRG IV PRN (22:00)
[2020-02-27] VITALS (100 sets, daily range): BP systolic 87–163; BP diastolic 35–84
--- NOTE | 2020-02-27 02:06 | NUR ---
PT UNABLE TO TURN AT THIS TIME DUE TO HIGH FI02 REQUIREMENTS AND PT TRENDING SATS 89%-92%. WILL CONTINUE TO REASSESS TOLERANCE.
--- NOTE | 2020-02-27 03:14 | NUR ---
PT DESATURATING INTO LOW 80'S AND MAINTAINING THERE WITH GOOD WAVEFORM ON PULSE OX. PT SUCTIONED WITH NO SECRETIONS NOTED ORALLY OR DOWN ET TUBE. RT PAGED FOR ASSISTANCE. RT PLACED PT BACK ON 100% FI02. WILL NOT BE TURNING PT AT THIS TIME.
[2020-02-27] MEDS: ACCU-CHEK COMFORT CURVE STRIP VI SCH ×7 (03:18→19:10)
--- NOTE | 2020-02-27 03:25 | NUR ---
PT CARE GAVE PT BED BATH AND CHANGED GOWN AND PILLOW CASES DUE TO LOW 02 SATS AND HIGH FI02 PT REMAINS SUPINE.
[2020-02-27 04:42] LABS: Hemoglobin 8.4 g/dL (13.5-17.5); Platelet Count (auto) 38 10^3/uL (140-450)
[2020-02-27 04:46] LABS: Hematocrit 24.6 % (41.0-53.0); Mean Corpuscular Hemoglobin 33.3 pg (28.0-32.0); Mean Corpuscular Hgb Conc. 34.2 g/dL (32.0-36.0); Mean Corpuscular Volume 97.2 fL (80.0-100.0); Red Blood Cells 2.53 10^6/uL (4.5-5.90); White Blood Cell 14.7 10^3/uL (4.4-10.8)
[2020-02-27 04:55] LABS: Red Cell Distribution Width 22.1 % (11.8-14.3)
[2020-02-27 04:57] LABS: Basophils % (manual) 0 (0.0-2.0); Blast Cells 0; Eosinophils % (manual) 0 (0-7); Metamyelocytes % 0; Myelocytes % 0; Promyelocytes % 0; Reactive Lymphocytes 0
[2020-02-27 04:58] LABS: Albumin 1.8 g/dL (3.4-5.0); BUN/Creatinine Ratio 6.8; Magnesium 1.9 mg/dL (1.6-2.6); Potassium 3.1 mmol/L (3.5-5.1)
[2020-02-27 05:05] LABS: INR 5.51 (0.9-1.15)
[2020-02-27 05:07] LABS: Bilirubin, Total 22.9 mg/dL (0.2-1.0); Total Protein 4.2 g/dL (6.4-8.2)
[2020-02-27 05:17] LABS: Calcium 5.7 mg/dL (8.5-10.1)
[2020-02-27] MEDS: MIDAZOLAM DRIP 50 mg/50mL 50 ML IV SCH ×3 (05:45→14:31)
[2020-02-27] MEDS: NOREPINEPHRINE BITARTRATE 16 MG in SODIUM CHL 0.9% 250 ML IV SCH ×2 (05:46→16:00)
--- NOTE | 2020-02-27 06:02 | NUR ---
INGRID HUERTAS PAGED FOR CRITICAL CALCIUM LEVEL AND LOW K LEVEL. AWAITING CALLBACK.
[2020-02-27 06:59] LABS: Band Neutrophils % (manual) 13; Lymphocytes % (manual) 7 (10.0-50.0); Monocytes % (manual) 6 (0-12)
[2020-02-27] MEDS ORDERED: POTASSIUM CHL 20MEQ/100ML 100 ML IV ONE (07:00)
[2020-02-27] MEDS ORDERED: CALCIUM GLUC 4.65meq/50ml D5AE 50 ML IV ONE ×2 (07:30→08:00)
--- NOTE | 2020-02-27 08:00 | NUR ---
Opening Shift Note Assumed care of patient, intubated and sedated. No S/S of pain. See interventions for complete assessment. Bed locked on low position, side rails up x2, bed alarms on at all times, will continue to monitor for changes Q1hr and PRN.
[2020-02-27] MEDS: OCTREOTIDE ACETATE 500 MCG in SODIUM CHL 0.9% 99 ML IV SCH ×2 (08:35→17:21)
--- NOTE | 2020-02-27 09:12 | NUR ---
Dr Summers at bedside, updated on patient's status. Patient seen and examined. Received orders to consult Dr Chiu and start Vancomycin per pharmacy protocol. Read back and verified. Will carry out.
[2020-02-27] MEDS: BUMETANIDE 2.5mg/10ml (0.25 mg/ml) INJ IV SCH ×2 (10:10→22:16)
[2020-02-27] MEDS: PANTOPRAZOLE 40 MG/10 ML VIAL INJ IV SCH ×2 (10:10→22:16)
[2020-02-27] MEDS: PHYTONADIONE (VIT K)10 MG/ML 1ML VIAL SUBCUT SCH (10:11)
[2020-02-27] MEDS: MEROPENEM 1GM IVPB 100 ML IV SCH ×2 (10:12→22:16)
[2020-02-27] MEDS ORDERED: VANCOMYCIN PER PHARMACY 0 MG IV SCH (10:30)
--- NOTE | 2020-02-27 11:00 | NUR ---
Dr Knight at bedside, updated on patient's status. Patient seen and examined. Will carry out new orders.
--- NOTE | 2020-02-27 11:01 | NUR ---
Patient's blood sugar 61 mg/dl, may give one amp D50 per Dr Knight. Read back and verified.
--- NOTE | 2020-02-27 11:28 | NUR ---
Dr Myles at bedside, updated on patient's status. Patient seen and examined. Will carry out new orders.
[2020-02-27] MEDS: POTASSIUM CHL 20MEQ/100ML 100 ML IV SCH ×2 (11:43→14:32)
[2020-02-27] MEDS: DEXTROSE (50%) 50ML SYRG IV PRN (11:44)
[2020-02-27] MEDS: DOPamine 1600MCG/ML D5W 250 ML IV SCH (11:47)
[2020-02-27] MEDS ORDERED: VANCOMYCIN 1GM/250ML 250 ML IV ONE (12:00)
--- NOTE | 2020-02-27 13:50 | NUR ---
This RN came back from lunch. Patient saturation 70's, Katina RT and billing associate Jeovany at bedside bagging patient. Saturation staying at 70's. Paged Dr Lawton and called back. Updated on patient's status. Verbalized understanding. MD to call family.
[2020-02-27] MEDS ORDERED: MAGNESIUM SULFATE 1GM/100ML 100 ML IV ONE (14:00)
[2020-02-27] MEDS ORDERED: phytonadione 10 MG in SODIUM CHL 0.9% 50 ML IV ONE (14:00)
[2020-02-27] MEDS: CALCIUM ACETATE 667 MG CAP NG SCH ×2 (14:00→22:00)
--- NOTE | 2020-02-27 14:00 | NUR ---
Received call from Dr Myles stating family is on their way to the hospital, patient still full code.
--- NOTE | 2020-02-27 14:35 | NUR ---
Patient's Devi, mother and daughter at bedside, awaiting Dr Myles.
--- NOTE | 2020-02-27 15:00 | NUR ---
Dr Myles at bedside, spoke to patient's Devi regarding Code Statu. stated "Will let him go." DNR form signed by this RN, and patient's . Paged Dr Cardoza and called back. Updated on patient's status, informed patient is DNR, MD verbalized understanding.
--- NOTE | 2020-02-27 16:05 | NUR ---
assessment Patient is a 44 year old male who is in ICU on a Vent. Per patients Devi prior to admission patient lived home with her and needed assistance. Per Devi patient has a shower chair for home use. Patients PCP is Dr Morgan. Devi is [id number] [facility] caregiver. Devi informed me patient was having rectal bleeding for 2 days prior to admit. Per Devi she called 911 and patient was brought to ER and admitted to ICU. Devi informed me patient has an advanced directive and she is POA. Patient is Covid negative. I informed Devi I will continue to monitor and follow up as appropriate. I informed Devi patients post discharge needs to be determined after extubation and prior to discharge. Devi verbalized understanding. Addendum: 02/27/20 at 1612 by Nel CHOUDHURY Amended: Links added.
[2020-02-27] MEDS: SODIUM BICARBONATE 50ML VIAL 50 ML in SOD CHL 0.45% 1,000 ML IV SCH (17:08)
[2020-02-27] MEDS: VASOPRESSIN 50 UNITS in D5W 5% 247.5 ML IV SCH (17:08)
--- NOTE | 2020-02-27 18:00 | NUR ---
Patient had small amount of dark stool, perineal care rendered. Skin integrity assessed for any changes, noted small skin tears on RT and LT buttocks. Z-guard applied. Will take wound photograph for reference. Linens changed. Patient repositioned for comfort.
--- NOTE | 2020-02-27 19:30 | NUR ---
Open Received pt on mechanical ventilator sedated on versed and fentanyl. on vasopressors. See IV spreadsheet for drips and their titrations. Full assessment done see interventions. Pt's sats in low 80's. too unstable to assess backside at this time or for turns. PT DNR status, signed and in chart. Will continue to monitor closely.
[2020-02-28] VITALS (102 sets, daily range): BP systolic 97–163; BP diastolic 34–80
--- NOTE | 2020-02-28 | NUR ---
Pt's blood sugar 60. 1 amp dextrose given
[2020-02-28] MEDS: NOREPINEPHRINE BITARTRATE 16 MG in SODIUM CHL 0.9% 250 ML IV SCH ×2 (02:16→14:46)
[2020-02-28] MEDS: fentaNYL Drip 2500mCg/250mlNS 250 ML IV SCH ×2 (02:19→18:32)
[2020-02-28] MEDS: ACCU-CHEK COMFORT CURVE STRIP VI SCH ×8 (03:00→21:28)
--- NOTE | 2020-02-28 03:12 | NUR ---
CARES Pt given partial linen change and bed bath. Skin integrity assessed for any changes. Pictures taken of skin tears on RT and LT buttocks. Pt desaturated to 70's, but recovered.
[2020-02-28 04:47] LABS: Hematocrit 30.8 % (41.0-53.0); Hemoglobin 10.1 g/dL (13.5-17.5); Mean Corpuscular Hemoglobin 32.9 pg (28.0-32.0); Mean Corpuscular Hgb Conc. 32.8 g/dL (32.0-36.0); Mean Corpuscular Volume 100.3 fL (80.0-100.0); Platelet Count (auto) 31 10^3/uL (140-450); Red Blood Cells 3.07 10^6/uL (4.5-5.90); White Blood Cell 15.5 10^3/uL (4.4-10.8)
[2020-02-28 04:48] LABS: Red Cell Distribution Width 23.9 % (11.8-14.3)
[2020-02-28 04:51] LABS: Basophils % (manual) 0 (0.0-2.0); Blast Cells 0; Eosinophils % (manual) 0 (0-7); Metamyelocytes % 0; Myelocytes % 0; Promyelocytes % 0; Reactive Lymphocytes 0
[2020-02-28 05:10] LABS: Albumin 1.9 g/dL (3.4-5.0); BUN/Creatinine Ratio 7.4; Calcium 6.3 mg/dL (8.5-10.1); Potassium 3.1 mmol/L (3.5-5.1)
[2020-02-28 05:12] LABS: Lactic Acid w/Reflex 6.8 mmol/L (0.4-2.0)
[2020-02-28 05:18] LABS: Bilirubin, Total 24.7 mg/dL (0.2-1.0); Total Protein 4.6 g/dL (6.4-8.2)
[2020-02-28 05:28] LABS: INR 6.2 (0.9-1.15)
[2020-02-28] MEDS: CALCIUM ACETATE 667 MG CAP NG SCH ×3 (06:00→22:08)
[2020-02-28 06:06] LABS: Band Neutrophils % (manual) 26; Lymphocytes % (manual) 6 (10.0-50.0); Monocytes % (manual) 4 (0-12)
[2020-02-28] MEDS: OCTREOTIDE ACETATE 500 MCG in SODIUM CHL 0.9% 99 ML IV SCH ×2 (06:18→14:46)
--- NOTE | 2020-02-28 06:28 | NUR ---
Hospitalist aware of labs. Received new order for potassium 20meq IV. Will carry out through EMAR
[2020-02-28] MEDS ORDERED: POTASSIUM CHL 20MEQ/100ML 100 ML IV ONE (06:30)
[2020-02-28] MEDS: DEXTROSE (50%) 50ML SYRG IV PRN ×3 (06:54→18:27)
[2020-02-28] MEDS: SODIUM BICARBONATE 50ML VIAL 50 ML in SOD CHL 0.45% 1,000 ML IV SCH ×2 (07:52→09:56)
[2020-02-28] MEDS: MIDAZOLAM DRIP 50 mg/50mL 50 ML IV SCH ×3 (07:53→16:33)
--- NOTE | 2020-02-28 08:00 | NUR ---
Opening Shift Note Assumed care of patient, intubated and sedated. See interventions for complete assessment. Bed locked on low position, side rails up x2, bed alarms on at all times, will continue to monitor for changes Q1hr and PRN.
--- NOTE | 2020-02-28 09:07 | NUR ---
Received call from patient's Devi who's able to provide password. Updated on patient's status and POC. Verbalized understanding. All questions and concerns addressed.
--- NOTE | 2020-02-28 09:30 | NUR ---
Dr Cardoza at bedside, updated on patient's status. Patient seen and examined. Will carry out new orders.
[2020-02-28] MEDS: BUMETANIDE 2.5mg/10ml (0.25 mg/ml) INJ IV SCH ×2 (09:54→22:08)
[2020-02-28] MEDS: PANTOPRAZOLE 40 MG/10 ML VIAL INJ IV SCH ×2 (09:54→22:08)
[2020-02-28] MEDS: PHYTONADIONE (VIT K)10 MG/ML 1ML VIAL SUBCUT SCH (09:55)
[2020-02-28] MEDS: MEROPENEM 1GM IVPB 100 ML IV SCH ×2 (09:56→22:08)
[2020-02-28] MEDS: DOPamine 1600MCG/ML D5W 250 ML IV SCH (10:00)
--- NOTE | 2020-02-28 10:35 | NUR ---
Dr Wayne at bedside, updated on patient's status. Patient seen and examined. Will carry out new orders.
[2020-02-28] MEDS ORDERED: VANCOMYCIN 1GM/250ML 250 ML IV ONE (10:45)
--- NOTE | 2020-02-28 11:03 | NUR ---
Dr Knight at bedside, updated on patient's status. Patient seen and examined. Will carry out new orders.
--- NOTE | 2020-02-28 12:00 | NUR ---
WOUND CARE NOTE: IN TO SEE PATIENT AT THIS TIME. BEDSIDE NURSE IS NOT AVAILABLE CURRENTLY. PATIENT WAS NOTED UPON ASSESSMENT TO HAVE NEW WOUND CONCERNS TO SACRUM BY BEDSIDE NURSE. WOUND PHOTO TAKEN AT THAT TIME FOR REFERENCE. PATIENT NOTED TO HAVE WHAT APPEARS TO BE OPEN BLISTERS OR SKIN TEARS TO POSTERIOR UPPER THIGH AND BUTTOCK. HE HAS ORDER FOR ZGUARD AND OPTIFOAM GENTLE DRESSINGS. WILL ATTEMPT TO SEE PATIENT AT LATER TIME WHEN NURSE IS AVAILABLE.
--- NOTE | 2020-02-28 12:48 | NUR ---
Nutrition Consult/ Followup Note Wt: 122.0 kg Pt intubated and off sedation per MD note. Pt with no diet order and no alternate nutrition initiated. Est energy needs IBW 86 [id number] kcal (25-30 kcal/kg), Est protein: 51-68g (0.6-0.8g/kg r/t elev ammonia) Will reassess prn. Labs: BUN 32 H, CREAT 4.31 H, CA 6.3 L, JACQUE 24.7 H, ALB 1.9 L. BM: 1 BM 02/26 per RN note Skin: BS 8 high risk, full details in transition of care specialist note PES: Altered nutrition related lab values r.t current chronic medical condition aeb elev LFTs, severe hypoalb Impaired swallowing r/t current medical condition aeb pt`s intubated sedated with order of NPO Comments :1) consider PN support to meet > 75% of needs if pt continues to be npo and GI is not accessible 2) Consider MVI/C bid. 3) consider prostat 1 packet bid if ammonia wnl. 4) advance diet as medically feasible 3) continue current plan of care. F/u high 2-3 days
--- NOTE | 2020-02-28 16:00 | NUR ---
Patient urine output 50ml since 0700am this morning. Paged Dr Wayne and Dr Calero. Both MD's called back. Received telephone order from Dr Wayne to give NS 500ml bolus. Received telephone order from Dr Calero to increase Bumex from 1mg to 2mg every 12hours. Orders read back and verified. Will carry out.
[2020-02-28] MEDS ORDERED: SODIUM CHLORIDE 0.9% 500 ML IV ONE (16:15)
[2020-02-28 18:08] LABS: Hemoglobin 8.8 g/dL (13.5-17.5)
[2020-02-28 18:09] LABS: Hematocrit 26.2 % (41.0-53.0)
--- NOTE | 2020-02-28 19:26 | NUR ---
Opening Shift Note Assumed care of patient who is sedated and on AC ventilation. Orders match ventilator settings. Patient on continuous EKG monitoring, continuous pulse oximetry, and has BP cuff to right forearm set to take blood pressure measurement at 15 minute intervals. No S/S of distress/SOB or pain. Bed is in lowest position and locked. Call light within reach. Board updated. Will continue to monitor for changes Q1hr and PRN.
--- NOTE | 2020-02-28 21:00 | NUR ---
Unable to perform sedation vacation because patient is hemodynamically unstable. Addendum: 02/29/20 at 0101 by VIKTORIA MASSEY RN Amended: Links added.
[2020-02-28 21:21] LABS: BUN/Creatinine Ratio 8.1; Calcium 6.4 mg/dL (8.5-10.1); Potassium 3.2 mmol/L (3.5-5.1)
[2020-02-29] VITALS (103 sets, daily range): BP systolic 78–138; BP diastolic 33–71
[2020-02-29] MEDS: ACCU-CHEK COMFORT CURVE STRIP VI SCH ×8 (00:17→21:16)
[2020-02-29] MEDS: OCTREOTIDE ACETATE 500 MCG in SODIUM CHL 0.9% 99 ML IV SCH ×3 (00:17→19:35)
[2020-02-29] MEDS: SODIUM BICARBONATE 50ML VIAL 50 ML in SOD CHL 0.45% 1,000 ML IV SCH (00:17)
[2020-02-29] MEDS ORDERED: LACTULOSE 10g/15ml SOLN PR ONE (00:30)
[2020-02-29] MEDS: LACTULOSE 10g/15ml SOLN PR SCH ×2 (00:30→06:48)
[2020-02-29] MEDS ORDERED: DEXTROSE 10% 1,000 ML IV SCH (00:30)
[2020-02-29] MEDS ORDERED: POTASSIUM CHL 20MEQ/100ML 100 ML IV ONE (00:30)
--- NOTE | 2020-02-29 00:32 | NUR ---
Spoke to FILE CLERK DATA ENTRY Ed and notified him of elevated ammonia level (120) and low potassium level (3.2 mEq), and consistently low blood glucose (62mcei. FILE CLERK DATA ENTRY Ward made aware that patient does not have NG tube r/t GI Bleed. Orders received: 1) insert rectal tube, 2) potassium chloride IV PB rider 20 mEq once, 3) Lactulose 100 mls TN once, 4) Dextrose 10% infusion at 40 mls/hr. Orders repeated, verified, and placed.
[2020-02-29] MEDS ORDERED: LACTULOSE 20Gm/30ML SOLN ONE (01:48)
--- NOTE | 2020-02-29 02:02 | NUR ---
Rectal tube inserted into anus per MD order and inflated with ordered recommended amount of water to seal. No stool output upon insertion. Will continue to assess. Addendum: 02/29/20 at 0805 by VIKTORIA MASSEY RN No bleeding upon placement.
--- NOTE | 2020-02-29 02:15 | NUR ---
Wound photo taken of DTI blister to left calf.
[2020-02-29] MEDS: DEXTROSE (50%) 50ML SYRG IV PRN (03:46)
--- NOTE | 2020-02-29 03:48 | NUR ---
Bed bath and complete linen change performed. Patient began to desaturate to high 80s and had to be oxygenated with 100% FiO2. Oxygen saturation has returned to 93%. Will continue to monitor.
[2020-02-29 04:06] LABS: Hemoglobin 8.9 g/dL (13.5-17.5); White Blood Cell 18.6 10^3/uL (4.4-10.8)
[2020-02-29 04:07] LABS: Hematocrit 26.2 % (41.0-53.0); Platelet Count (auto) 29 10^3/uL (140-450)
[2020-02-29 04:29] LABS: Red Cell Distribution Width 24.4 % (11.8-14.3)
[2020-02-29 04:30] LABS: Basophils % (manual) 0 (0.0-2.0); Blast Cells 0; Myelocytes % 0; Promyelocytes % 0; Reactive Lymphocytes 0
[2020-02-29 04:34] LABS: Albumin 1.6 g/dL (3.4-5.0); Calcium 6.6 mg/dL (8.5-10.1); Magnesium 1.9 mg/dL (1.6-2.6); Potassium 3.5 mmol/L (3.5-5.1)
[2020-02-29 04:39] LABS: BUN/Creatinine Ratio 7.8; Bilirubin, Total 22.7 mg/dL (0.2-1.0); Total Protein 4.2 g/dL (6.4-8.2)
[2020-02-29 05:33] LABS: INR 7.13 (0.9-1.15)
[2020-02-29] MEDS: CALCIUM ACETATE 667 MG CAP NG SCH ×2 (06:00→12:02)
--- NOTE | 2020-02-29 06:15 | NUR ---
Reassessed blood glucose after patient's blood glucose was found to be 59 and D5 was adminsitered. Blood glucose level is 102 mg/dl. Will continue to assess.
--- NOTE | 2020-02-29 06:48 | NUR ---
Unable to administer Lactulose rectal dose because medication is still unavailable. Pharmacy will be sending up medication for administer on next dose. Will non-administer lactulose for 0600.
[2020-02-29 06:52] LABS: Band Neutrophils % (manual) 11; Eosinophils % (manual) 3 (0-7); Lymphocytes % (manual) 7 (10.0-50.0); Metamyelocytes % 1; Monocytes % (manual) 7 (0-12)
--- NOTE | 2020-02-29 07:00 | NUR ---
REPORT RECEIVED FROM ROCK CUTTER NURSE. PATIENT RESTING IN BED INTUBATED AND SEDATED. RESPIRATIONS EVEN AND UNLABORED. NO SIGNS OF ACUTE DISTRESS NOTED. BED IN LOW POSITION. WILL CONTINUE TO MONITOR.
--- NOTE | 2020-02-29 08:00 | NUR ---
RECTAL PROBE PLACEMENT DUE TO DECREASED TEMP AND UNABLE TO OBTAIN ORAL OR AXILLARY TEMP.; UPON PLACEMENT PATIENTS TEMP 95.2F RECTALLY. APPLIED BEAR HUGGER BLANKET. PATIENT SATURATIONS DECREASED INTO THE MID 80'S WITHOUT RECOVERY. RESPIRATORY THERAPIST AT BEDSIDE AND INCREASED FIO2 TO 100% FROM 90%. SATURATIONS INCREASED TO 90%. WILL CONTINUE TO MONITOR.
--- NOTE | 2020-02-29 09:15 | NUR ---
DR Molly BRANDT AT BEDSIDE TO ASSESS PATIENT AND DISCUSS PLAN OF CARE. NO NEW ORDERS AT THIS TIME. RECOMMENDS COMFORT CARE.
[2020-02-29] MEDS: PANTOPRAZOLE 40 MG/10 ML VIAL INJ IV SCH ×2 (09:23→22:32)
[2020-02-29] MEDS: BUMETANIDE 2.5mg/10ml (0.25 mg/ml) INJ IV SCH ×2 (09:23→22:32)
[2020-02-29] MEDS: PHYTONADIONE (VIT K)10 MG/ML 1ML VIAL SUBCUT SCH (09:23)
[2020-02-29] MEDS: MEROPENEM 1GM IVPB 100 ML IV SCH ×2 (09:24→22:32)
--- NOTE | 2020-02-29 09:55 | NUR ---
DR GAFFNEY AT BEDSIDE TO ASSESS PATIENT AND DISCUSS PLAN OF CARE. PER MD CHANGE PATIENTS VITAMIN K TO IVP VS SUBQ. ALSO PER MD WILL STOP LACTULOSE ORDER AT THIS TIME. ALL ORDERS NOTED IN CHART.
[2020-02-29] MEDS ORDERED: VANCOMYCIN 750mg/250ml 250 ML IV ONE (10:00)
[2020-02-29] MEDS: DOPamine 1600MCG/ML D5W 250 ML IV SCH (10:00)
--- NOTE | 2020-02-29 10:15 | NUR ---
SPOKE TO AND UPDATED ON PATIENT STATUS. REQUESTING TO HAVE PHYSICAL THERAPY AIDES TEACHER READ LAST RIGHTS FOR PATIENT. WILL CALL TO REQUEST LAST RIGHTS. PER AUTOMATIC SPINNING LATHE SETTER PATIENTS AND PHYSICAL THERAPY AIDES TEACHER MAY COME IN TO SEE PATIENT.
[2020-02-29] MEDS: fentaNYL Drip 2500mCg/250mlNS 250 ML IV SCH (11:03)
[2020-02-29] MEDS: VASOPRESSIN 50 UNITS in D5W 5% 247.5 ML IV SCH (11:15)
[2020-02-29] MEDS: NOREPINEPHRINE BITARTRATE 16 MG in SODIUM CHL 0.9% 250 ML IV SCH (11:27)
--- NOTE | 2020-02-29 12:08 | NUR ---
DR CORREA AT BEDSIDE TO ASSESS PATIENT. NO NEW ORDERS AT THIS TIME.
--- NOTE | 2020-02-29 13:55 | NUR ---
DR PARSONS AT BEDSIDE TO ASSESS PATIENT AND DISCUSS PLAN OF CARE. ALL ORDERS NOTED IN CHART.
[2020-02-29] MEDS: MIDAZOLAM DRIP 50 mg/50mL 50 ML IV SCH (14:01)
--- NOTE | 2020-02-29 14:30 | NUR ---
WOUND CARE NOTE: PATIENT HAS NEW BLOOD FILLED BLISTER TO LEFT CALF, NOTED UPON ASSESSMENT LAST NIGHT. BEDSIDE NURSE PHOTOGRAPHED WOUND FOR REFERENCE. PATIENT CONTINUES TO BE INTUBATED, SEDATED, CURRENT GWEN SCORE OF 9. PATIENT IS RESTING ON ICU LOW AIRLOSS BED. PATIENT APPEARS JAUNDICED, WITH GENERALIZED EDEMA NOTED. PATIENT IS TOO UNSTABLE TO TURN/REPOSITION CURRENTLY. RECOMMEND: CONTINUATION WITH ALL WOUND CARE ORDERS PREVIOUSLY PRESCRIBED BY MD. WOUND CARE TEAM WILL CONTINUE TO MONITOR.
--- NOTE | 2020-02-29 15:54 | NUR ---
VASCULAR SURGERY PHYSICIAN AND AT BEDSIDE TO READ PATIENT LAST RIGHTS.
--- NOTE | 2020-02-29 18:21 | NUR ---
VENT: TITRATED FIO2 DOWN TO 80%. SPO2 94%. NOTIFIED TAE CAPONE OF CHANGES.
--- NOTE | 2020-02-29 21:00 | NUR ---
Unable to perform sedation vacation at this time. Patient is much too hemodynamically unstable and has required increases in Levophed to maintain adequate MAP (see IV spreadsheet). Addendum: 03/01/20 at 0010 by VIKTORIA MASSEY RN Amended: Links added.
[2020-02-29] MEDS ORDERED: ALBUMIN 5% 250 ML IV ONE (21:15)
--- NOTE | 2020-02-29 21:15 | NUR ---
Spoke to INGRID Ward regarding low BP (78/59 and 99/48) with despite increase in vasopressin (0.07 U) and Levophed (24 mcg/min) and trending low blood glucose level (62). I am nearing max of levophed and wanted to notify MD in case he wanted another Vasopressor. Orders received: 1) Albumin 5% 250 ml IV once, 2) Dextrose 10% IV at 65 mls/hr, 3) Hemoglobin and Hematocrit now. Orders received, verified, and placed.
[2020-02-29] MEDS: DEXTROSE 10% 1,000 ML IV SCH (22:31)
[2020-02-29 23:19] LABS: Hemoglobin 9.2 g/dL (13.5-17.5)
[2020-02-29 23:21] LABS: Hematocrit 27.5 % (41.0-53.0)
[2020-03-01] VITALS (109 sets, daily range): BP systolic 91–153; BP diastolic 4–71
[2020-03-01] MEDS: ACCU-CHEK COMFORT CURVE STRIP VI SCH ×9 (00:07→23:46)
--- NOTE | 2020-03-01 00:47 | NUR ---
TITRATED FIO2 TO 70%. SPO2 95%. NOTIFIED RN OF CHANGES.
--- NOTE | 2020-03-01 03:02 | NUR ---
Complete bed bath and linen change performed.
[2020-03-01 05:01] LABS: Hematocrit 25.9 % (41.0-53.0); Hemoglobin 8.7 g/dL (13.5-17.5); Mean Corpuscular Hgb Conc. 33.8 g/dL (32.0-36.0); Mean Corpuscular Volume 97.7 fL (80.0-100.0); Red Blood Cells 2.65 10^6/uL (4.5-5.90); White Blood Cell 21.8 10^3/uL (4.4-10.8)
[2020-03-01 05:25] LABS: Platelet Count (auto) 18 10^3/uL (140-450)
[2020-03-01 05:26] LABS: Basophils % (manual) 0 (0.0-2.0); Blast Cells 0; Metamyelocytes % 0; Myelocytes % 0; Promyelocytes % 0; Reactive Lymphocytes 0
[2020-03-01 05:28] LABS: Albumin 1.6 g/dL (3.4-5.0); Calcium 6.9 mg/dL (8.5-10.1); Potassium 3.2 mmol/L (3.5-5.1)
[2020-03-01 05:31] LABS: BUN/Creatinine Ratio 7.7; Bilirubin, Total 23.9 mg/dL (0.2-1.0)
[2020-03-01 05:32] LABS: INR > 8.0 (0.9-1.15)
--- NOTE | 2020-03-01 05:56 | NUR ---
Paged hospitalist to notify of critical INR (>8.0) and critical Platelet count (18). Awaiting call back.
[2020-03-01] MEDS: OCTREOTIDE ACETATE 500 MCG in SODIUM CHL 0.9% 99 ML IV SCH ×2 (06:04→15:13)
--- NOTE | 2020-03-01 06:12 | NUR ---
Spoke to INGRID Ward and notified him of critical lab values. No orders given.
[2020-03-01 06:28] LABS: Band Neutrophils % (manual) 2; Eosinophils % (manual) 1 (0-7); Lymphocytes % (manual) 3 (10.0-50.0); Monocytes % (manual) 3 (0-12)
[2020-03-01] MEDS ORDERED: POTASSIUM CHL 20MEQ/100ML 100 ML IV ONE (06:30)
[2020-03-01] MEDS ORDERED: PHYTONADIONE (VIT K)10 MG/ML 1ML VIAL SUBCUT ONE (06:30)
--- NOTE | 2020-03-01 07:24 | NUR ---
Closing shift note Care endorsed to TAE Harmon. Patient exhibiting no signs of distress of SOB.
--- NOTE | 2020-03-01 07:24 | NUR ---
REPORT RECEIVED FROM CAREERS COUNSELLOR NURSE. PATIENT RESTING IN BED AT THIS TIME, INTUBATED AND SEDATED. RESPIRATIONS EVEN AND UNLABORED. NO SIGNS OF ACUTE DISTRESS NOTED. BED IN LOW POSITION, WILL CONTINUE TO MONITOR.
--- NOTE | 2020-03-01 08:00 | NUR ---
LINEN CHANGE COMPLETED AND PATIENT TOLERATED WELL. DESATURATIONS TO 84% BUT NOT SUSTAINED. PATIENT RECOVERED TO 93% WITHIN 10 MINUTES. WILL CONTINUE TO MONITOR.
--- NOTE | 2020-03-01 09:55 | NUR ---
DR Prosper BRANDT AT BEDSIDE TO ASSESS PATIENT AND DISCUSS PLAN OF CARE. NO NEW ORDERS AT THIS TIME.
[2020-03-01] MEDS ORDERED: PHYTONADIONE (VIT K)10 MG/ML 1ML VIAL IV SCH (10:00)
[2020-03-01] MEDS: ALBUMIN 25% 100 ML IV SCH ×2 (10:13→16:41)
[2020-03-01] MEDS: PANTOPRAZOLE 40 MG/10 ML VIAL INJ IV SCH ×2 (10:18→22:04)
[2020-03-01] MEDS: MEROPENEM 1GM IVPB 100 ML IV SCH ×2 (10:18→22:05)
[2020-03-01] MEDS: NOREPINEPHRINE BITARTRATE 16 MG in SODIUM CHL 0.9% 250 ML IV SCH (10:18)
[2020-03-01] MEDS: BUMETANIDE INJECTION 12.5 MG in GIVE UN-DILUTED 0 ML IV SCH (10:19)
[2020-03-01] MEDS: MIDAZOLAM DRIP 50 mg/50mL 50 ML IV SCH ×3 (10:38→22:12)
--- NOTE | 2020-03-01 10:41 | NUR ---
DR GAFFNEY AT BEDSIDE TO ASSESS PATIENT AND DISCUSS PLAN OF CARE. PER MD ADMINISTER 1 UNIT PLATELETS AND 2 UNITS FFP. ALL ORDERS NOTED IN CHART.
[2020-03-01] MEDS: VASOPRESSIN 50 UNITS in D5W 5% 247.5 ML IV SCH ×2 (10:48→22:44)
[2020-03-01] MEDS: fentaNYL Drip 2500mCg/250mlNS 250 ML IV SCH ×2 (11:03→22:12)
--- NOTE | 2020-03-01 11:04 | NUR ---
UPDATED ON PATIENT STATS. ALL QUESTIONS AND CONCERNS ADDRESSED AT THIS TIME.
--- NOTE | 2020-03-01 11:50 | NUR ---
Nutrition Consult/ Followup Note Wt: 130.8 kg Per MD note pt is intubated and sedated. Pt NPO diet orders with no TF or TPN ordered. Consider TPN if GI route is not accessible. Est energy needs IBW 86 [id number] kcal (25-30 kcal/kg), Est protein: 51-68g (0.6-0.8g/kg r/t elev ammonia) Will reassess prn. Labs: BUN 37H, Creat 4.83H, Alb 1.6L, Ca 6.9L, AST 484H, ALT 191H, ALK PHOS 409H. BM: 1 BM 02/27 per RN note Skin: BS 9 high risk, full details in urgent care physician note PES: Altered nutrition related lab values r.t current chronic medical condition aeb elev LFTs, severe hypoalb Impaired swallowing r/t current medical condition aeb pt`s intubated sedated with order of NPO Comments :1) consider PN support to meet > 75% of needs if pt continues to be npo and GI is not accessible 2) Consider MVI/C bid. 3) consider prostat 1 packet bid if ammonia wnl. 4) advance diet as medically feasible 3) continue current plan of care. F/u high 2-3 days
--- NOTE | 2020-03-01 12:05 | NUR ---
DR CARDONA AT BEDSIDE TO ASSESS PATIENT AND DISCUSS PLAN OF CARE. ALL ORDER NOTED IN CHART. MD TO CALL AND UPDATE ON PATIENT STATUS.
[2020-03-01] MEDS: DEXTROSE 10% 1,000 ML IV SCH (13:15)
--- NOTE | 2020-03-01 13:30 | NUR ---
BLOOD PRODUCTS PLATELETS STARTED PER PROTOCOL. NO SIGNS OF ADVERSE REACTION. WILL CONTINUE TO MONITOR.
[2020-03-01] MEDS ORDERED: OCTREOTIDE ACETATE 100 MCG/ML VL SUBCUT SCH (14:00)
[2020-03-01] MEDS: DOPamine 1600MCG/ML D5W 250 ML IV SCH (15:13)
[2020-03-01] MEDS ORDERED: phytonadione 10 MG in SODIUM CHL 0.9% 50 ML IV ONE (16:00)
--- NOTE | 2020-03-01 16:48 | NUR ---
BLOOD PRODUCT STARTED FIRST UNIT OF FFP PER PROTOCOL. PATIENT TOLERATING WELL, NO ADVERSE REACTIONS NOTED.
--- NOTE | 2020-03-01 21:00 | NUR ---
SEDATION VACATION NOT APPROPRIATE AT THIS TIME. NO PLANS FOR CPAP TRIAL. PT STACKING BREATHS AND OUT OF SYNC ON VENTILATOR- SEDATION INCREASED PER PROTOCOL. Addendum: 03/01/20 at 2151 by HERSON KRAFT RN RN Amended: Links added.
--- NOTE | 2020-03-01 21:03 | NUR ---
2ND UNIT OF FFP STARTED PER MD ORDER. VITAL SIGNS STABLE. NO ADVERSE REACTIONS NOTED AT THIS TIME.
--- NOTE | 2020-03-01 23:32 | NUR ---
FFP TRANSFUSION COMPLETED. NO S/S OF TRANSFUSION REACTION NOTED. VITAL SIGNS STABLE.
[2020-03-02] VITALS (107 sets, daily range): BP systolic 103–144; BP diastolic 42–74
[2020-03-02] MEDS: ALBUMIN 25% 100 ML IV SCH ×2 (00:34→09:48)
[2020-03-02] MEDS: OCTREOTIDE ACETATE 500 MCG in SODIUM CHL 0.9% 99 ML IV SCH ×3 (03:24→14:06)
[2020-03-02] MEDS: ACCU-CHEK COMFORT CURVE STRIP VI SCH ×7 (03:24→21:00)
[2020-03-02] MEDS: MIDAZOLAM DRIP 50 mg/50mL 50 ML IV SCH ×4 (03:25→19:07)
--- NOTE | 2020-03-02 03:25 | NUR ---
PT CARE GAVE PT CHG BATH AND PARTIAL MENDY CHANGE. GOWN CHANGE DONE. KIMBERLYN PADS NOTED TO BE SATURATED FROM WEEPING ON ALL FOUR EXTREMITIES. NEW PADS PLACED. EUGENE CARE DONE. PT DID NOT TOLERATE TURNING WELL- DESATURATED FROM 82-86% WITH COPIOUS SECRETIONS NOTED ORALLY (WHITE/YELLOW THICK) AND DOWN ET TUBE (YELLOW/GREEN/ THICK). GAVE PT 100% 02 AND HAS TAKEN 10-15 MINUTES TO RECOVER WITH SATURATIONS NOW 88-90%. RT MADE AWARE.
[2020-03-02] MEDS: DEXTROSE 10% 1,000 ML IV SCH ×3 (05:10→20:33)
[2020-03-02 05:31] LABS: Red Blood Cells 2.08 10^6/uL (4.5-5.90)
[2020-03-02 05:35] LABS: Hematocrit 20.4 % (41.0-53.0); Mean Corpuscular Hemoglobin 33.6 pg (28.0-32.0); Mean Corpuscular Hgb Conc. 34.2 g/dL (32.0-36.0); Mean Corpuscular Volume 98.2 fL (80.0-100.0); Platelet Count (auto) 47 10^3/uL (140-450); White Blood Cell 21.6 10^3/uL (4.4-10.8)
[2020-03-02 05:51] LABS: Red Cell Distribution Width 23.2 % (11.8-14.3)
[2020-03-02 05:52] LABS: Potassium 3.2 mmol/L (3.5-5.1)
[2020-03-02 06:15] LABS: Albumin 2.7 g/dL (3.4-5.0); BUN/Creatinine Ratio 8.3; Bilirubin, Total 27.4 mg/dL (0.2-1.0); Calcium 7.4 mg/dL (8.5-10.1); Magnesium 1.9 mg/dL (1.6-2.6); Total Protein 4.8 g/dL (6.4-8.2)
--- NOTE | 2020-03-02 06:15 | NUR ---
[facility] NEPHROLOGY REGARDING HGB OF 7.0 AND POTASSIUM OF 3.2. AWAITING CALLBACK. Addendum: 03/02/20 at 0640 by HERSON KRAFT RN RN WANT TO MAKE MD AWARE OF URINE OUTPUT OF 125 ML THIS SHIFT DESPITE BUMEX GTT AND ALBUMIN Q8H.
--- NOTE | 2020-03-02 06:16 | NUR ---
Respiratory note: RECEIVED PATIENT ON V200 RENTAL VENT, ORALLY INTUBATED WITH AN 8.0 ETT SECURED VIA KENAN AT THE 24CM MARKING AT THE LIP, AND MECHANICALLY VENTILATED WITH THE CHARTED SETTINGS. SPO2 95%, LUNG SOUNDS DIM T/O. SKIN IS WARM/DRY TO THE TOUCH AND IS INTACT NEAR KENAN SITE. THERE IS A TRIPLE LUMEN CENTRAL LINE PLACED IN THE RIGHT IJ, NO OGT OR NGT NOTED, SEVERE PITTING EDEMA NOTED IN BILATERAL UPPER AND LOWER EXTREMITIES. NO NEW AM CXR TO ASSESS. PATIENT IS UNRESPONSIVE TO BOTH VERBAL/TACTILE STIMULI AND IS SEDATED ON VERSED AND FENTANYL DRIPS. HE IS RESTING COMFORTABLY AND TOLERATING VENT WELL, NO CHANGES MADE. VENT PLUGGED INTO RED OUTLET AND ALL ALARMS ARE SET AND AUDIBLE. WILL CONTINUE TO ASSESS PATIENT WELL VENTILATOR FUNCTION.
[2020-03-02 07:08] LABS: INR > 8.0 (0.9-1.15)
[2020-03-02 07:14] LABS: Basophils % (manual) 0 (0.0-2.0); Blast Cells 0; Metamyelocytes % 0; Myelocytes % 0; Promyelocytes % 0; Reactive Lymphocytes 0
[2020-03-02 07:15] LABS: Band Neutrophils % (manual) 8; Eosinophils % (manual) 2 (0-7); Lymphocytes % (manual) 8 (10.0-50.0); Monocytes % (manual) 4 (0-12)
--- NOTE | 2020-03-02 07:30 | NUR ---
REPORT REPORT RECEIVED FROM AIDAN RNHERSON. PT RESTING IN BED WITH EYES CLOSED, SEDATED AND ON THE VENTILATOR WITH VSS. PT CURRENTLY SEDATED ON VERSED AND FENTANYL AND ON LEVOPHED FOR BP SUPPORT. CONTINUE TO MONITOR.
--- NOTE | 2020-03-02 07:36 | NUR ---
Respiratory note: AM CXR ASSESSED AND IT SHOWS ETT IN SATISFACTORY POSITION SITTING APPROX 3.1CM ABOVE THE ALBERTO. NO INDICATION TO ADJUST TUBE.
--- NOTE | 2020-03-02 08:15 | NUR ---
ASSESSMENT PT IN BED WITH EYES CLOSED AND SEDATED WHILE ON THE VENTILATOR WITH NO SPONTANEOUS MOVEMENT NOTED. SEDATED ON FENTANYL AND VERSED AT MAXIMUM DOSES. VENTILATOR SETTINGS OF: 8 FR ETT/ 24 AT THE LIP, TV 550, AC 18, 100% FIO2 AND PEEP OF 15. LUNGS CLEAR AND DIMINISHED THROUGHOUT AND WITH INSPIRATORY WHEEZES NOTED ON THE LEFT LATERAL. SUCTIONED VOA ETT FOR SMALL AMOUNT OF THICK GREENISH BROWN FLUID. O2 SAT OF 95% AND RR 18. TELE ST 107, WITH DEPRESSED ST IN LEAD II AND ELEVATED ST IN LEAD V. PALPABLE PULSES TO ALL EXTREMITIES. +4 PITTING EDEMA NOTED TO LEGS AND FEET. +2-3 PITTING EDEMA NOTED TO BUE AND HANDS. UNABLE TO APPLY SCDS LEGS TOO BIG. ABD LARGE AND ROUND WITH PROTRUDING HERNIA TO THE UPPER MIDLINE ABD. ONLY A RARE BOWEL SOUND NOTED. PT WITH NO OGT OR NGT. LAST BM WAS ON 02/26. LAMBERT CATHETER DRAINING SMALL AMOUNT OF DARK TEA COLORED URINE. ALL IVF INFUSING VIA RIJ TLC, PLACED 02/21, SITE BENIGN. PT WITH A POPPED BLISTER TO THE RIGHT ABD FLANK, DRAINING YELLOW FLUID AND WITH AN OPTIFOAM DRESSING IN PLACE. PT WITH SKIN TEARS TO THE INTRAGLUTEAL FOLD WITH RED WOUND BED AND SKIN TEARS TO LEFT LOWER BUTTOCK AND TO THE POSTERIOR LEFT THIGH WITH OPTIFOAM DRESSINGS IN PLACE. POPPED BLISTER TO THE LEFT OUTER CALF/BROWN AREA WITH RED WOUND BED AND OPTIFOAM DRESSING IN PLACE. REPOSITIONED PT TO HIS LEFT SIDE. CONTINUE TO MONITOR PT AND MAKE SURE HE TOLERATES THE TURN.
--- NOTE | 2020-03-02 09:00 | NUR ---
SEDATION VACATION PT UNABLE TO TOLERATE HAVING SEDATION DECREASED OR TURNED OFF HE IS VERY UNSTABLE AND ON 100% FIO2 Addendum: 03/02/20 at 1538 by Mariely Wagner RN Amended: Links added.
[2020-03-02] MEDS: PANTOPRAZOLE 40 MG/10 ML VIAL INJ IV SCH ×2 (09:47→22:04)
[2020-03-02] MEDS: DOPamine 1600MCG/ML D5W 250 ML IV SCH (09:52)
--- NOTE | 2020-03-02 10:18 | NUR ---
MD DR BRANDT AT THE BEDSIDE AND UPDATED ON THE PT'S CURRENT CONDITION INCLUDING AM LABS: NA130, K 3.2, H/H 7.0/20.4, PLT 47, WBC 21.6 AND INR GREATER THAN 8.0. ORDER RECEIVED FOR K RIDER 40 mEQ IV.
[2020-03-02] MEDS ORDERED: VASOPRESSIN 20 UNIT/ML ONE (10:25)
[2020-03-02] MEDS: MEROPENEM 1GM IVPB 100 ML IV SCH ×2 (11:00→22:09)
[2020-03-02] MEDS: BUMETANIDE INJECTION 12.5 MG in GIVE UN-DILUTED 0 ML IV SCH ×2 (11:35→16:00)
--- NOTE | 2020-03-02 11:44 | NUR ---
WOUND CARE CLARK, JEWEL LATHE OPERATOR, AT THE BEDSIDE FROM 1128 UNTIL NOW. WOUNDS PHOTOGRAPHED AND CARE PROVIDED. PT DESATURATED DOWN TO 79% AND RECOVERED UP TO 92% AFTER APPROXIMATELY 5 MINUTES. RETURNED PT TO HIS BACK. CONTINUE TO MONITOR.
--- NOTE | 2020-03-02 11:45 | NUR ---
WOUND CARE NOTE: Wound care in to see patient for reevaluation of wounds. Patient continue resting in ICU low air loss bed Rm. 111. Patient is intubated and mechanically ventilated. Patient appears to be in no pain using Oleary Ponce Faces Pain Scale. His Sly score is 10. Skin/wound assessment done with the assistance of patient's nurse, TAE Schuster. Patient's L heel continue to display an intact DTI measuring 5x3.5cm. Patient still has generalized edema. Weeping edema noted to his bilateral arm; staff is managing draiange with application of care pad to bilateral arms. Patient developed multiple blisters and now open and draining. HIs L lateral lower leg open blister measuring 3.5x4cm,red with pink nancy wound, moderate serous drainage. Patient's medial sacrum at intragluteal fold has 5x1cm open blister, display red wound bed with bright and dark red nancy wound. Lt buttock (1.5x0.8cm) open blister, L posterior thigh open blister measuring 1x5cm and 4x2cm. Open blisters has minimal to moderate serosanguineous drainage with bright and dark red nancy wound. No odor noted. Cleansed multiple wounds with wound cleanser,patted dry with gauze, applied Thera honey gauze over open wound beds, and covered wounds with Opti foam gentle dressing. Patient's Rt and Lt lateral ear lobe display scabbed abrasions,no drainage/odor noted. New photograph of wounds are taken for reference. Patient tolerated well, repositioned for comfort on his back, redistributed pressure points with pillows. TAE Schuster at bedside. RECOMMENDATION: EOD/PRN dressing change to multiple open blisters per MD order, Continuation of all wound care orders prescribed by MD, continue with skin/wound plan of care, continue monitoring by wound care while patient is hospitalized. Addendum: 03/02/20 at 1639 by Madison Mata RN Amended: Links added.
[2020-03-02] MEDS: fentaNYL Drip 2500mCg/250mlNS 250 ML IV SCH (12:03)
[2020-03-02] MEDS: POTASSIUM CHL 20MEQ/100ML 100 ML IV SCH ×2 (12:04→14:04)
--- NOTE | 2020-03-02 12:20 | NUR ---
MD VISIT DR GAFFNEY HERE AND MADE AWARE OF H/H 7.0/20.4 AND INR REMAINS >8. ORDERS RECEIVED TO GIVE PT 2 UNITS OF PRBC AND 2 UNITS FFP.
[2020-03-02] MEDS ORDERED: VANCOMYCIN 500 MG in D5W 5% 100 ML IV ONE (13:00)
--- NOTE | 2020-03-02 13:00 | NUR ---
MD VISIT DR TAYLOR IN TO SEE PT AND MADE AWARE OF LABS, LOW UOP, AND PENDING ORDERS TO GIVE 2 UNITS OF FFP AND 2 UNITS OF PRBC. HE WANTS PT TO RECEIVE ONE UNIT PRBC AND THEN RECHECK THE H/H AND GIVE 1 UNIT OF FFP.
[2020-03-02] MEDS: NOREPINEPHRINE BITARTRATE 16 MG in SODIUM CHL 0.9% 250 ML IV SCH (14:01)
--- NOTE | 2020-03-02 15:55 | NUR ---
MD VISIT UPDATED MD ON PT'S CURRENT CONDITION, LABS, ORDERS FOR PRBC AND FFP, LOW UOP AND PT'S LUNGS NOW WITH INSPIRATORY AND EXPIRATORY CRACKLES THROUGHOUT. ORDER RECEIVED TO INCREASE BUMEX TO 1 MG/HR.
--- NOTE | 2020-03-02 16:51 | NUR ---
FFP ADMINISTRATION OBTAINED FFP FROM BLOOD BANK AND VERIFIED WITH SECOND RNMISHA. STARTED TRANSFUSION AT 100 ML/HR AND WILL MONITOR PT FOR ANY POSSIBLE ADVERSE EFFECTS.
--- NOTE | 2020-03-02 18:40 | NUR ---
FFP COMPLETED WITH NO ADVERSE REACTIONS NOTED. PT STILL NEEDS ONE UNIT PRBC TO BE GIVEN . WILL ENDORSE TO NIGHT RN.
--- NOTE | 2020-03-02 19:50 | NUR ---
REPORT REPORT GIVEN TO RAJ BERMUDEZ RN.
--- NOTE | 2020-03-02 20:15 | NUR ---
UNABLE TO TURN PATIENT SLIGHTLY TURNED PATIENT TO SIDE TO DO WOUND ASSESSMENT. SATURATION DROPPED TO 85%. PLACED PATIENT BACK ON SUPINE POSITION WITH HEAD ELEVATED.
[2020-03-03] VITALS (109 sets, daily range): BP systolic 78–165; BP diastolic 28–50
--- NOTE | 2020-03-03 00:15 | NUR ---
UNABLE TO TURN PATIENT SATURATION 87% ON 100% FIO2.
[2020-03-03] MEDS: fentaNYL Drip 2500mCg/250mlNS 250 ML IV SCH ×2 (00:17→23:52)
[2020-03-03] MEDS: ACCU-CHEK COMFORT CURVE STRIP VI SCH ×8 (00:24→21:15)
[2020-03-03 00:37] LABS: Hemoglobin 7.2 g/dL (13.5-17.5)
[2020-03-03] MEDS: OCTREOTIDE ACETATE 500 MCG in SODIUM CHL 0.9% 99 ML IV SCH ×3 (01:59→22:16)
--- NOTE | 2020-03-03 02:00 | NUR ---
UNABLE TO TURN PATIENT SATURATION 81% ON 100% FIO2.
[2020-03-03] MEDS: DOPamine 1600MCG/ML D5W 250 ML IV SCH (02:18)
[2020-03-03] MEDS: BUMETANIDE INJECTION 12.5 MG in GIVE UN-DILUTED 0 ML IV SCH (02:21)
[2020-03-03 06:09] LABS: Hemoglobin 7.6 g/dL (13.5-17.5); Platelet Count (auto) 28 10^3/uL (140-450)
[2020-03-03 06:13] LABS: Hematocrit 22.2 % (41.0-53.0); Mean Corpuscular Hemoglobin 33.2 pg (28.0-32.0); Mean Corpuscular Volume 97.5 fL (80.0-100.0); Red Blood Cells 2.28 10^6/uL (4.5-5.90); White Blood Cell 18.4 10^3/uL (4.4-10.8)
[2020-03-03 06:26] LABS: Red Cell Distribution Width 21.7 % (11.8-14.3)
[2020-03-03 06:27] LABS: Basophils % (manual) 0 (0.0-2.0); Blast Cells 0; Promyelocytes % 0; Reactive Lymphocytes 0
[2020-03-03 06:31] LABS: Potassium 3.6 mmol/L (3.5-5.1)
[2020-03-03 06:48] LABS: Albumin 2.6 g/dL (3.4-5.0); BUN/Creatinine Ratio 8.5; Bilirubin, Total 27.3 mg/dL (0.2-1.0); Calcium 7.5 mg/dL (8.5-10.1); Total Protein 4.6 g/dL (6.4-8.2)
[2020-03-03 07:13] LABS: INR 5.14 (0.9-1.15)
--- NOTE | 2020-03-03 07:30 | NUR ---
REPORT REPORT RECEIVED FROM NIGHT RNRAJ. BEDSIDE CHECK DONE. CONTINUE TO MONITOR.
--- NOTE | 2020-03-03 08:25 | NUR ---
ASSESSMENT PT RESTING IN BED WITH EYES CLOSED. NO SPONTANEOUS MOVEMENT NOTED. PUPILS 4 AND FIXED. NO COUGH OR GAG NOTED WITH DEEP SUCTIONING. PT WITH SCLERODERMA AND BURST BLOOD VESSELS IN BOTH EYES, VERY JAUNDICED TO EYES AND SKIN ALSO. ON THE VENTILATOR WITH WETTINGS OF: 8 FR ETT/24 AT THE LIP, AC 18, TV 550, 100% FIO2 AND PEEP OF 15. LUNGS COARSE ON INSPIRATION AND CRACKLES ON EXPIRATION. O2 SAT OF 88%. SUCTIONED VIA ETT FOR SMALL AMOUNT OF YELLOWISH BROWN THIN FLUID. +4 PITTING EDEMA NOTED TO BOTH FEET AND ANKLES AND +3 PITTING EDEMA NOTED TO LEGS/BUE/BOTH HANDS. NO SCDS DUE TO SIZE OF LEGS. ABD LARGE AND ROUND WITH NO BOWEL SOUNDS NOTED. NO OGT OR NGT. LAST BM WAS 02/26. LAMBERT DRAINING SCANT AMOUNT OF DARK TEA/BROWN COLORED URINE. UNABLE TO TURN AND ASSESS SKIN PT DE-SATS DOWN TO 85% JUST WITH MOVING OF LIMBS. BED WITH VERY MINIMAL TURN EVERY 10 MINUTES. CONTINUE TO MONITOR.
--- NOTE | 2020-03-03 08:59 | NUR ---
AT 0855, BLOOD SUGAR CHECK DONE ON RIGHT HAND WITH RESULT OF 55 AND THEN RECHECKED ON THE LEFT HAND WITH A RESULT OF 59. PER PROTOCOL, BLOOD DRAWN AND SENT TO LAB FOR STAT GLUCOSE LEVEL. ALSO ADMINISTERED ONE AMP OF D50 IVP. D10 RUNNING AT 65 ML/HR. WILL NOTIFY
--- NOTE | 2020-03-03 09:00 | NUR ---
DEFERRING IN SEDATION VACATION PT IS VERY UNSTABLE Addendum: 03/03/20 at 1626 by Mariely Wagner RN Amended: Links added.
[2020-03-03] MEDS: DEXTROSE (50%) 50ML SYRG IV PRN (09:09)
--- NOTE | 2020-03-03 09:19 | NUR ---
MD/PHONE/ LOW BLOOD SUGAR AND HIGH INR PAGED AND SPOKE WITH MD REGARDING LOW BLOOD SUGAR RESULTS OF 55 AND 59 AND ONE AMP D50 GIVEN. MD ORDERS TO INCREASE D10 TO 100 ML/HR. ALSO MADE AWARE THAT THIS AM INR IS 5.14 DOWN FROM GREATER THAN 8 YESTERDAY AND PT RECEIVED ONE UNIT OF FFP YESTERDAY. HE STATED THAT HE WOULD ADDRESS THAT WHEN HE SEES THE PT.
[2020-03-03 09:31] LABS: Band Neutrophils % (manual) 15; Eosinophils % (manual) 1 (0-7); Lymphocytes % (manual) 3 (10.0-50.0); Metamyelocytes % 2; Monocytes % (manual) 4 (0-12); Myelocytes % 2
[2020-03-03] MEDS: PANTOPRAZOLE 40 MG/10 ML VIAL INJ IV SCH ×2 (09:54→22:15)
[2020-03-03] MEDS: MEROPENEM 1GM IVPB 100 ML IV SCH ×2 (09:54→22:15)
--- NOTE | 2020-03-03 10:00 | NUR ---
UNABLE TO TURN PT TO APPLY BARRIER CREAM TO SACRUM PT IS TOO UNSTABLE TO TURN AT THIS TIME. Addendum: 03/03/20 at 1621 by Mariely Wagner RN Amended: Links added.
--- NOTE | 2020-03-03 10:34 | NUR ---
MODE CHANGED TO PCV: Pi 24, RR 18, PEEP 15, Ti 0.9, 100% FIO2 PER DR. BRANDT
--- NOTE | 2020-03-03 10:37 | NUR ---
/DR BRANDT ABLE TO GET THE PT'S ON THE PHONE AND DR VERNON SPOKE WITH HER TO UPDATE HER ON THE PT'S CURRENT CONDITION.
[2020-03-03] MEDS: DEXTROSE 10% 1,000 ML IV SCH ×2 (11:15→21:15)
[2020-03-03] MEDS: NOREPINEPHRINE BITARTRATE 16 MG in SODIUM CHL 0.9% 250 ML IV SCH (11:15)
[2020-03-03] MEDS ORDERED: VASOPRESSIN 20 UNIT/ML ONE (11:39)
[2020-03-03] MEDS: VASOPRESSIN 50 UNITS in D5W 5% 247.5 ML IV SCH ×3 (12:00)
--- NOTE | 2020-03-03 14:25 | NUR ---
BLOOD TRANSFUSION PER DR GAFFNEY, PT TO RECEIVE ONE UNIT OF PRBC TODAY. CONSENT PREVIOUSLY OBTAINED AND ON THE CHART. VERIFIED WITH TAE GABRIEL, AND BLOOD TRANSFUSION STARTED. CONTINUE TO MONITOR PT FOR ANY POSSIBLE ADVERSE REACTIONS.
--- NOTE | 2020-03-03 14:26 | NUR ---
Nutrition Consult/ Followup Note Wt: 139.0 kg Pt is intubated and sedated. Pt is NPO since 02/22, with no TF or TPN ordered. Suggest nutrition support be initiated. Consider TPN if GI route is not accessible. Will continue to monitor PO status, skin status, pertinent labs and weight trends. Will f/u in 2-3 days. Est energy needs IBW 86 [id number] kcal (25-30 kcal/kg), Est protein: 51-68g (0.6-0.8g/kg r/t elev ammonia) Will reassess prn. Labs: BUN 43H, Creat 5.04H, GFR 13 L, Alb 2.6L, Ca 7.5L, AST 220H, ALT 68H, ALK PHOS 339H. BM: Pt had no BM today per RN note Skin: BS 7 high risk, full details in landcare officer note PES: Altered nutrition related lab values r.t current chronic medical condition aeb elev LFTs, severe hypoalb Impaired swallowing r/t current medical condition aeb pt`s intubated sedated with order of NPO Comments : 1) consider PN support to meet > 75% of needs if pt continues to be npo and GI is not accessible 2) Consider MVI/C bid. 3) consider prostat 1 packet bid if ammonia wnl. 4) advance diet as medically feasible 5) continue current plan of care. F/u high 2-3 days
--- NOTE | 2020-03-03 15:11 | NUR ---
REPORTED ABG RESULTS TO DR. BRANDT. VENT CHANGES.
[2020-03-03] MEDS ORDERED: FUROSEMIDE INJECTION 100 MG in SODIUM CHL 0.9% 100 ML IV SCH (16:00)
--- NOTE | 2020-03-03 17:30 | NUR ---
BLOOD TRANSFUSION COMPLETED AND TOLERATED WELL BY PT.
[2020-03-03] MEDS: FUROSEMIDE INJECTION 100 MG in SODIUM CHL 0.9% 100 ML IV SCH ×2 (18:11→22:17)
--- NOTE | 2020-03-03 18:11 | NUR ---
STARTED LASIX DRIP AFTER RECEIVING FROM PHARMACY.
--- NOTE | 2020-03-03 18:41 | NUR ---
Respiratory note: RECEIVED PT ON VENT, ALARMS ARE SET AND AUDIBLE. ETT MOVED FORM RIGHT TO LEFT WITHOUT INCIDENT. AMBU BAG AND MASK AT BEDSIDE. BS ARE COURSE. SXD VIA ETT FOR SCANT BLOODY OCHOATAE AT BEDSIDE. WILL CONTINUE TO MONITOR.
--- NOTE | 2020-03-03 19:22 | NUR ---
REPORT REPORT GIVEN TO RAJ BERMUDEZ RN.
--- NOTE | 2020-03-03 20:20 | NUR ---
Central Line Dressing Changes Central line dressing change done with a sterile technique. Cleansed with chloraprep scrub/betadine. Bio-patch applied to the site. Occlusive dressing applied.
--- NOTE | 2020-03-03 20:24 | NUR ---
Respiratory note: AT BEDSIDE FOR ROUTINE VENT CHECK. BS ARE FINE COURSE SXD VIA ETT FOR MODERATE THIN GREEN/YELLOW SECRETIONS. TAE FRANCISCO MADE AWARE. NO VENT CHANGES MADE AT THIS TIME. WILL CONTINUE TO MONITOR.
[2020-03-04] VITALS (105 sets, daily range): BP systolic 82–141; BP diastolic 18–42
[2020-03-04] MEDS: VASOPRESSIN 50 UNITS in D5W 5% 247.5 ML IV SCH ×2 (00:02→12:41)
[2020-03-04] MEDS: ACCU-CHEK COMFORT CURVE STRIP VI SCH ×8 (00:03→21:00)
--- NOTE | 2020-03-04 02:18 | NUR ---
Respiratory note: AT BEDSIDE FOR ROUTINE VENT CHECK. WHEEZES HEARD T/O LEFT UPPER LOBE. PT HAS NO PRN TXS WILL PAGE HOSPITALIST FOR PRN TXS. NO CHANGES MADE WILL CONTINUE TO MONITOR.
--- NOTE | 2020-03-04 02:22 | NUR ---
Respiratory note: HOSPITALIST PAGED.
--- NOTE | 2020-03-04 02:25 | NUR ---
Respiratory note: CALL BACK FROM HOSPITALIST NEW ORDERES TO ADD ALBUTEROL 2.5MG Q4PRN. TAE ANTHONY COMMUNICATED ON ORDERS.
[2020-03-04] MEDS ORDERED: ALBUTEROL SULF 2.5 MG/0.5ML(0.5%) NEB SOLN NEB PRN (02:30)
--- NOTE | 2020-03-04 02:40 | NUR ---
Respiratory note: MED NEB TX GIVEN INLINE. NO ADVERSE REACTION NOTED.
--- NOTE | 2020-03-04 03:00 | NUR ---
Patient bathe/linen change Patient given complete bath. Skin integrity assessed for any changes. Linens changed. Patient repositioned for comfort. Wound dressing changed.
[2020-03-04] MEDS: FUROSEMIDE INJECTION 100 MG in SODIUM CHL 0.9% 100 ML IV SCH ×5 (03:38→22:15)
[2020-03-04] MEDS: DOPamine 1600MCG/ML D5W 250 ML IV SCH (03:41)
[2020-03-04] MEDS: DEXTROSE 10% 1,000 ML IV SCH ×2 (05:45→10:03)
[2020-03-04 06:33] LABS: Red Blood Cells 2.31 10^6/uL (4.5-5.90)
[2020-03-04 06:38] LABS: Hematocrit 22.4 % (41.0-53.0); Hemoglobin 7.5 g/dL (13.5-17.5); Mean Corpuscular Hemoglobin 32.7 pg (28.0-32.0); Mean Corpuscular Hgb Conc. 33.6 g/dL (32.0-36.0); Mean Corpuscular Volume 97.3 fL (80.0-100.0); White Blood Cell 18.7 10^3/uL (4.4-10.8)
[2020-03-04 06:50] LABS: Albumin 2.2 g/dL (3.4-5.0); Calcium 7.2 mg/dL (8.5-10.1); Potassium 3.6 mmol/L (3.5-5.1)
[2020-03-04 07:04] LABS: Bilirubin, Total 25.7 mg/dL (0.2-1.0)
[2020-03-04 07:05] LABS: Red Cell Distribution Width 22.2 % (11.8-14.3)
[2020-03-04 07:07] LABS: Platelet Count (auto) 19 10^3/uL (140-450)
[2020-03-04 07:08] LABS: Band Neutrophils % (manual) 0; Basophils % (manual) 0 (0.0-2.0); Blast Cells 0; Metamyelocytes % 0; Myelocytes % 0; Promyelocytes % 0; Reactive Lymphocytes 0
[2020-03-04 07:12] LABS: BUN/Creatinine Ratio 8.1
[2020-03-04 07:22] LABS: INR 7.82 (0.9-1.15)
[2020-03-04 07:38] LABS: Eosinophils % (manual) 1 (0-7); Lymphocytes % (manual) 11 (10.0-50.0); Monocytes % (manual) 3 (0-12)
[2020-03-04] MEDS: OCTREOTIDE ACETATE 500 MCG in SODIUM CHL 0.9% 99 ML IV SCH ×2 (09:38→23:00)
[2020-03-04] MEDS: MEROPENEM 1GM IVPB 100 ML IV SCH ×2 (10:52→22:21)
[2020-03-04] MEDS: MIDAZOLAM DRIP 50 mg/50mL 50 ML IV SCH (10:52)
[2020-03-04] MEDS: PANTOPRAZOLE 40 MG/10 ML VIAL INJ IV SCH ×2 (10:53→22:21)
[2020-03-04] MEDS ORDERED: VANCOMYCIN 500 MG in D5W 5% 100 ML IV SCH ×2 (11:00→13:00)
--- NOTE | 2020-03-04 11:10 | NUR ---
Patient's Devi adam - updated on current patient status - verbalized understanding.
--- NOTE | 2020-03-04 11:27 | NUR ---
Dr Cardoza visits and examines patient- no new orders received. Addendum: 03/04/20 at 1146 by Sunshine Osorio RN Error in visit time - should be 0945
--- NOTE | 2020-03-04 11:27 | NUR ---
Dr Myles visits and examines patient - no new orders received.
--- NOTE | 2020-03-04 11:50 | NUR ---
Dr Cardoza returns call - ABG results given - orders received RT paged for vent changes
[2020-03-04] MEDS ORDERED: SODIUM BICARBONATE 8.4 % INJ 50ML VIAL IV ONE ×3 (12:00→20:13)
[2020-03-04] MEDS ORDERED: phytonadione 10 MG in SODIUM CHL 0.9% 50 ML IV ONE (14:00)
--- NOTE | 2020-03-04 14:00 | NUR ---
Dr Knight visits and examines patient - no new orders received.
--- NOTE | 2020-03-04 14:43 | NUR ---
Patient's and mother at bedside - Dr Myles and poem writer explained critical condition of patient and very poor prognosis - verbalized understanding. Patient's tearful - support given. Patient's family state they will discuss with other family members and inform patient's caregivers and Dr Myles of plans for patient.
--- NOTE | 2020-03-04 15:15 | NUR ---
Dr Henderson visits and examines patient - no new ordes received.
[2020-03-04] MEDS: NOREPINEPHRINE BITARTRATE 16 MG in SODIUM CHL 0.9% 250 ML IV SCH (15:39)
--- NOTE | 2020-03-04 16:45 | NUR ---
Unable to get axillary or oral temp - heat lamp and warm blankets applied - will monitor.
--- NOTE | 2020-03-04 17:00 | NUR ---
Unable to reposition patient this shift due to hemodynamic instability.
--- NOTE | 2020-03-04 18:30 | NUR ---
DR BRANDT NOTIFIED OF ABG RESULTS - ORDERS RECEIVED. REQUESTED MANAGER PIPELINE TO CALL DR RUBIO FOR ADDITIONAL ORDERS.
--- NOTE | 2020-03-04 19:06 | NUR ---
DR RUBIO NOTIFIED OF ABG RESULTS AND DR BRANDT REQUEST - STATES WILL PLACE ORDERS.
--- NOTE | 2020-03-04 19:15 | NUR ---
OPENING SHIFT RECEIVED REPORT FROM DAY SHIFT RN. ASSUMED CARE OF PATIENT. PATIENT INTUBATED AND SEDATION WITH NO SIGNS OF SOB, PAIN OR DISTRESS. RIGHT INTERNAL JUGULAR TLC - CLEAN/DRY/INTACT. LAMBERT HUNG TO GRAVITY. PATIENT UNSTABLE TO TURN AT THIS TIME. SEDATION: FENTANYL - 100MCG/HR VASOPRESSORS: LEVOPHED DOUBLE CONCENTRATION - 2MCG/MIN VASOPRESSIN - 0.07UNITS/MIN DOPAMINE - 2MCG/KG/MIN LASIX GTT - 22ML/HR BED IN LOWEST POSITION, SIDE RAILS UP X2. WILL CONTINUE TO MONITOR.
[2020-03-04] MEDS: SODIUM BICARBONATE 50ML VIAL 150 ML in D5W 5% 1,000 ML IV SCH (20:19)
[2020-03-04] MEDS: fentaNYL Drip 2500mCg/250mlNS 250 ML IV SCH (22:15)
[2020-03-05] VITALS (17 sets, daily range): BP systolic 90–125; BP diastolic 25–46
[2020-03-05] MEDS: FUROSEMIDE INJECTION 100 MG in SODIUM CHL 0.9% 100 ML IV SCH ×2 (01:15→08:15)
[2020-03-05] MEDS: VASOPRESSIN 50 UNITS in D5W 5% 247.5 ML IV SCH (01:27)
[2020-03-05] MEDS: ACCU-CHEK COMFORT CURVE STRIP VI SCH ×4 (03:00→09:01)
[2020-03-05 04:51] LABS: Hematocrit 22.7 % (41.0-53.0); Hemoglobin 7.6 g/dL (13.5-17.5); Mean Corpuscular Hemoglobin 32.8 pg (28.0-32.0); Mean Corpuscular Hgb Conc. 33.4 g/dL (32.0-36.0); Mean Corpuscular Volume 98.2 fL (80.0-100.0); Red Blood Cells 2.32 10^6/uL (4.5-5.90); White Blood Cell 18.8 10^3/uL (4.4-10.8)
[2020-03-05 05:06] LABS: Lactic Acid w/Reflex 3.9 mmol/L (0.4-2.0)
[2020-03-05 05:08] LABS: Potassium 3.7 mmol/L (3.5-5.1)
[2020-03-05 05:23] LABS: Albumin 2.1 g/dL (3.4-5.0); Bilirubin, Total 24.4 mg/dL (0.2-1.0); Calcium 7.2 mg/dL (8.5-10.1); Magnesium 1.9 mg/dL (1.6-2.6); Total Protein 3.9 g/dL (6.4-8.2)
[2020-03-05 05:31] LABS: Red Cell Distribution Width 21.4 % (11.8-14.3)
[2020-03-05] MEDS ORDERED: SODIUM BICARBONATE 8.4 % INJ 50ML VIAL IV ONE ×2 (05:37→08:30)
[2020-03-05 05:39] LABS: INR > 8.0 (0.9-1.15); Platelet Count (auto) 13 10^3/uL (140-450)
[2020-03-05 05:41] LABS: Basophils % (manual) 0 (0.0-2.0); Blast Cells 0; Metamyelocytes % 0; Myelocytes % 0; Promyelocytes % 0; Reactive Lymphocytes 0
[2020-03-05] MEDS: OCTREOTIDE ACETATE 500 MCG in SODIUM CHL 0.9% 99 ML IV SCH (06:00)
[2020-03-05] MEDS: DOPamine 1600MCG/ML D5W 250 ML IV SCH (06:00)
[2020-03-05] MEDS: SODIUM BICARBONATE 50ML VIAL 150 ML in D5W 5% 1,000 ML IV SCH (06:00)
--- NOTE | 2020-03-05 06:35 | NUR ---
SPOKE WITH HOSPITALIST MADE AWARE OF INR > 8.0 RECEIVED ORDERS FOR VITAMIN K 10MG IVPB. TORB. WILL CONTINUE TO MONITOR.
[2020-03-05 07:11] LABS: Band Neutrophils % (manual) 7; Eosinophils % (manual) 1 (0-7); Lymphocytes % (manual) 3 (10.0-50.0); Monocytes % (manual) 7 (0-12)
[2020-03-05] MEDS ORDERED: phytonadione 10 MG in SODIUM CHL 0.9% 50 ML IV ONE (07:15)
--- NOTE | 2020-03-05 07:25 | NUR ---
END OF SHIFT REPORT GIVEN TO DAY SHIFT RN. CARE ENDORSED.
--- NOTE | 2020-03-05 08:17 | NUR ---
CALL OUT TO DR. BRANDT REGARDING CRITICAL ABG.
--- NOTE | 2020-03-05 08:20 | NUR ---
DR. BRANDT CALLED BACK WITH NEW ORDERS. SEE EMR.
[2020-03-05] MEDS: DEXTROSE (50%) 50ML SYRG IV PRN (09:00)
[2020-03-05] MEDS: MEROPENEM 1GM IVPB 100 ML IV SCH (10:00)
[2020-03-05] MEDS: PANTOPRAZOLE 40 MG/10 ML VIAL INJ IV SCH (10:00)
[2020-03-05] MEDS: MIDAZOLAM DRIP 50 mg/50mL 50 ML IV SCH (10:52)
--- NOTE | 2020-03-05 12:35 | NUR ---
REQUESTED BY DR. CARDONA TO PRONOUNCE PT PT WAS ADMITTED 02/21 WITH GI BLEED, INTUBATED ON THAT DATE. PT HAS HX OF LIVER FAILURE. PT WAS MADE DNR 03/01 AND WAS TERMINALLY WEANED AR 1155. FOUND PULSELESS AND APNEIC ASYSTOLE IN 3 LEADS. ABSENCE OF PULSE AND RESP AFTER 1 FULL MINUTE OF AUSCULTATION. NO DTR'S, GAG OR CORNEAL REFLEXES.. TOD 1239
--- NOTE | 2020-03-05 12:55 | NUR ---
CALL TO [facility] TO REPORT . RELEASE NUMBER OBTAINED #[phone].
--- NOTE | 2020-03-05 13:36 | NUR ---
SPOKE TO NENO ALFREDO EL TEACHER BINDING NICKER. STATES NO RELEASE # AT THIS TIME. STATES NOT REPORTABLE AT THIS TIME.
--- NOTE | 2020-03-05 14:23 | NUR ---
SPOKE WITH SHITAL FROM [facility] REGARDING FAMILY REQUESTING THEIR MORTUARY. SHITAL STATES SHE WILL SEND HER TRANSPORT TEAM OUT TO GET Patient.
--- NOTE | 2020-03-05 15:51 | NUR ---
AFFORDABLE CREMATION HERE TO SUPERVISOR [employer] BODY.
== END 2020-03-05 12:35 | disposition expired | DRG 720 ==
LOC: EDBD 05:53 → ER 05:53 → TELE 05:54 → ICU WEST 21:32
PROVIDERS: ADMIT Internal Medicine; ATTEND Internal Medicine
PROC: 5A1955Z Respiratory Ventilation, Greater than 96 Consecutive Hours (ICD-10-PCS; 2020-02-22)
PROC: 0BH17EZ Insertion of Endotracheal Airway into Trachea, Via Natural or Artificial Opening (ICD-10-PCS; 2020-02-22)
PROC: 30230N1 Transfusion of Nonautologous Red Blood Cells into Peripheral Vein, Open Approach (ICD-10-PCS; 2020-02-22)
PROC: 30233K1 Transfusion of Nonautologous Frozen Plasma into Peripheral Vein, Percutaneous Approach (ICD-10-PCS; 2020-02-22)
PROC: 06L38CZ Occlusion of Esophageal Vein with Extraluminal Device, Via Natural or Artificial Opening Endoscopic (ICD-10-PCS; principal; 2020-02-22 11:45)
PROC: 02HV33Z Insertion of Infusion Device into Superior Vena Cava, Percutaneous Approach (ICD-10-PCS; 2020-02-23)
PROC: 30233R1 Transfusion of Nonautologous Platelets into Peripheral Vein, Percutaneous Approach (ICD-10-PCS; 2020-03-01)
DX: A41.9 Sepsis, unspecified organism (principal); E43 Unspecified severe protein-calorie malnutrition; R57.1 Hypovolemic shock; J69.0 Pneumonitis due to inhalation of food and vomit; N17.0 Acute kidney failure with tubular necrosis; K42.9 Umbilical hernia without obstruction or gangrene; K70.31 Alcoholic cirrhosis of liver with ascites; E87.6 Hypokalemia; K92.0 Hematemesis; D62 Acute posthemorrhagic anemia; I85.01 Esophageal varices with bleeding; D69.6 Thrombocytopenia, unspecified; D68.9 Coagulation defect, unspecified; E87.2 Acidosis; E83.51 Hypocalcemia; D68.59 Other primary thrombophilia; E87.1 Hypo-osmolality and hyponatremia; F17.210 Nicotine dependence, cigarettes, uncomplicated; I85.11 Secondary esophageal varices with bleeding; J96.01 Acute respiratory failure with hypoxia; Y90.9 Presence of alcohol in blood, level not specified; K43.9 Ventral hernia without obstruction or gangrene; K70.40 Alcoholic hepatic failure without coma; N18.9 Chronic kidney disease, unspecified; Z66 Do not resuscitate; R65.21 Severe sepsis with septic shock; F10.20 Alcohol dependence, uncomplicated; J90 Pleural effusion, not elsewhere classified; Z51.5 Encounter for palliative care; Z82.3 Family history of stroke; Z87.11 Personal history of peptic ulcer disease; Z79.899 Other long term (current) drug therapy; Z90.49 Acquired absence of other specified parts of digestive tract; E83.39 Other disorders of phosphorus metabolism
CPT/HCPCS: 31500; 36415; 36430; 36556; 36600; 43244; 71045; 74176; 76604; 80048; 80053; 80202; 80307; 80320; 81001; 82040; 82140; 82570; 82805; 82947; 82962; 83605; 83735; 83880; 84100; 84156; 84300; 84443; 84484; 85007; 85014; 85018; 85025; 85027; 85045; 85610; 85730; 86850; 86900; 86901; 86920; 87040; 87070; 87076; 87081; 87205; 93005; 94002; 94003; 94640; 96365; 96375; 99291; C9113; G0378; J0330; J0610; J0696; J2185; J2250; J2543; J2704; J3430; J3480; J7060; P9047